=== PATIENT | female | born 1990 | race Caucasian/White ===

== ENCOUNTER → 2020-09-07 09:42 | Outpatient (CLI) | payer OTHER, SELFPAY ==
[2020-09-07 10:34] LABS: Add Manual Diff / Slide Review NO; Basophils Absolute Auto 0 /uL (0-100); Basophils Percent Auto 0.6 % (0-2); Eosinophils Absolute Auto 0 /uL (0-450); Eosinophils Percent Auto 0.5 % (2-4); Hematocrit 40.6 % (36-46); Hemoglobin 13.7 g/dL (12.0-16.0); Lymphocytes Absolute Auto 2000 /uL (1100-4500); Lymphocytes Percent Auto 24.4 % (25-40); Mean Corpuscular HGB Conc 33.7 % (30-36); Mean Corpuscular Hemoglobin 28.4 PG (26-34); Mean Corpuscular Volume 84.4 fL (80-100); Monocytes Absolute Auto 600 /uL (0-900); Monocytes Percent Auto 7.1 % (3-14); Neutrophils Absolute Auto 5500 /uL (1500-7000); Neutrophils Percent Auto 67.4 % (50-75); Platelet Count 330 X10^3/uL (150-400); Red Blood Cell Count 4.82 X10^6/uL (4.0-5.2); Red Cell Distribution Width 12.9 % (11.6-14.8); White Blood Cell Count 8.2 X10^3/uL (4.5-11.0)
[2020-09-07 10:52] LABS: Appearance Urine UA CLEAR; Bilirubin Urine UA NEGATIVE (NEGATIVE); Color Urine UA YELLOW; Glucose Urine UA NEGATIVE (Negative); Ketones Urine UA NEGATIVE (NEGATIVE); Leukocyte Esterase Urine UA NEGATIVE (NEGATIVE); Nitrite Urine UA NEGATIVE (Negative); Occult Blood Urine UA TRACE-LYSED (Negative); Protein Urine UA NEGATIVE (Negative); Specific Gravity Urine UA 1.025 (1.000-1.035); Urobilinogen Urine UA 0.2 E.U./dL (0.2)
[2020-09-07 10:56] LABS: pH Urine UA 6.5 (4.5-8.0)
[2020-09-07 13:29] LABS: Hepatitis B Surface Antigen NEGATIVE s/c (NEGATIVE)
[2020-09-07 13:46] LABS: HIV 1 & 2 Ab/Ag 4th Gen Combo NEGATIVE (NEGATIVE); Hep C Virus Ab w/Reflex Quant NEGATIVE s/c (NEGATIVE)
[2020-09-08 12:14] LABS: RPR Screen Non Reactive (Non Reactive); Varicella IgG Antibody 930 index (Immune >165)
== END ==
PROVIDERS: Referring Provider Specialist; Visit Provider Specialist
DX: Z34.01 Encounter for supervision of normal first pregnancy, first trimester (principal)
CPT/HCPCS: 36415; 80055; 81003; 86787; 86803; 86850; 86900; 86901; 87077; 87086; 87147; 87186; 87389

== ENCOUNTER → 2020-10-05 16:11 | Outpatient (CLI) | payer OTHER, SELFPAY | PROVIDERS: Visit Provider Specialist | DX: Z34.01 Encounter for supervision of normal first pregnancy, first trimester (principal) | CPT/HCPCS: 87077; 87086 ==

== ENCOUNTER → 2020-11-30 14:39 | Outpatient (CLI) | payer OTHER, SELFPAY ==
[2020-12-02 19:06] LABS: AFP, Serum 57.2 ng/mL (.); Calc Gestational Age Ultrasound (.); Estriol, Free 1.48 ng/mL (.); Inhibin A, Dimeric 190.95 pg/mL (.); Inhibin A, MoM 1.17 (.); Maternal Ethnicity Caucasian (.); Maternal Weight 146 lbs (.); Number of Fetuses No (.); OSBR Risk 1 IN 7366 (.); Results Report (.); Test Results *Screen Negative* (.); hCG, MoM 1.67 (.); hCG, Serum 44753 mIU/mL (.)
== END ==
PROVIDERS: PCP Internal Medicine; Referring Provider Specialist; Visit Provider Specialist
DX: Z34.02 Encounter for supervision of normal first pregnancy, second trimester (principal); Z3A.18 18 weeks gestation of pregnancy
CPT/HCPCS: 36415; 82105; 82677; 84702; 86336; 87491; 87591

== ENCOUNTER → 2020-11-30 14:39 | Outpatient (ROUT) | payer OTHER, SELFPAY ==
[2020-11-30 16:14] LABS: Urine N gonorrhoeae NOT DETECTED
[2020-11-30 16:28] LABS: Urine Chlamydia NOT DETECTED
== END ==
PROVIDERS: Visit Provider Specialist
DX: Z34.02 Encounter for supervision of normal first pregnancy, second trimester (principal); Z3A.18 18 weeks gestation of pregnancy
CPT/HCPCS: 87491; 87591

== ENCOUNTER → 2020-12-14 13:01 | Outpatient (CLI) | payer OTHER, SELFPAY ==
--- NOTE | 2020-12-14 13:02 | DI.US.S_ITS ---
PROCEDURE: US OB >= 14 WEEKS FETUS INDICATIONS: ANATOMY OUTSIDE/PRIOR DATING DATA: Last menstrual period (LMP): 07/08/2020 . LMP-based estimated date of delivery (MONIKA): 04/14/2021 . First dating scan (date and location): 09/07/2020 . Estimated date of delivery (MONIKA) from first dating scan: 04/29/2021 . TECHNIQUE: Real-time scanning was performed of the fetus, with image documentation and biometric measurements. Endovaginal scanning: Not performed COMPARISON: None. FINDINGS: General: A single living intrauterine gestation is present. Presentation: Breech. Placenta: Placental position is anterior , without previa. Amniotic fluid index: 18.4 cm, normal range is 5-24 cm. heart rate: 152 beats per minute. Maternal cervical canal: 3.0 cm long. Normal lower limit is 2.5 cm. biometrics: Estimated gestational age from initial scan: 20 weeks 4 days Composite gestational age from present scan: 20 weeks 5 days Estimated weight and percentile: 365 grams, 47th percentile Measurement variability for biometric dating: +/- 7 days from 14 weeks to 15 weeks 6 days gestation, +/- 10 days from 16 weeks to 21 weeks 6 days gestation, +/- 2 weeks from 22 weeks to 27 weeks 6 days gestation, +/- 3 weeks for 28 weeks gestation or later. weight reference: 4500 g or EFW >90/95% is considered macrosomia or large for gestational age. EFW <10% is small for gestational age. EFW 5% or less is considered intra-uterine growth restriction. Anatomic survey: Neuro: Ventricles are non-dilated at less than 10 mm. Cisterna magna is normal at 3-11 mm. Cerebellum is normal in size and morphology. Nuchal skin fold: Normal at less than 6 mm between 14-21 weeks gestational age. Face: Nose and lips, facial profile are normal. Spine: No evidence for spina bifida. Heart: 4-chambered heart is present, with normal ventricular outflow tracts. Diaphragm: Diaphragm is intact. Stomach: Left-sided stomach is present. Kidneys: No hydronephrosis. Normal is less than 5 mm in 2nd trimester, less than 7 mm in 3rd trimester. Cord: 3-vessel cord has orthotopic insertion. Bladder: Normal in size. Extremities: All 4 extremities identified. IMPRESSION: Single live intrauterine gestation with appropriate interval growth and normal anatomic survey. Dictated by: Modesto Carroll M.D. on 12/14/2020 at 16:30 Approved by: Modesto Carroll M.D. on 12/14/2020 at 16:31
== END ==
PROVIDERS: PCP Internal Medicine; Referring Provider Specialist; Visit Provider Specialist
DX: Z34.02 Encounter for supervision of normal first pregnancy, second trimester (principal); Z3A.20 20 weeks gestation of pregnancy
CPT/HCPCS: 76811

== ENCOUNTER → 2021-01-16 09:28 | Outpatient (CLI) | payer OTHER, SELFPAY ==
[2021-01-16 11:46] LABS: Hematocrit 34.5 % (36-46); Hemoglobin 11.6 g/dL (12.0-16.0)
[2021-01-16 12:32] LABS: GTT (PREG) 1 Hour PP 50gm Dose 165 mg/dL (76-139)
== END ==
PROVIDERS: PCP Internal Medicine; Referring Provider Specialist; Visit Provider Specialist
DX: Z34.82 Encounter for supervision of other normal pregnancy, second trimester (principal); Z3A.25 25 weeks gestation of pregnancy
CPT/HCPCS: 36415; 82950; 85014; 85018

== ENCOUNTER → 2021-04-11 13:12 | Outpatient (CLI) | payer OTHER, SELFPAY ==
[2021-04-12 10:42] LABS: Strep Grp B PCR NEG for Grp B Strep
== END ==
PROVIDERS: PCP Internal Medicine; Visit Provider Specialist
DX: Z34.03 Encounter for supervision of normal first pregnancy, third trimester (principal); Z3A.36 36 weeks gestation of pregnancy
CPT/HCPCS: 87653

== ENCOUNTER → 2021-08-16 15:44 | Outpatient (ROUT) | payer OTHER, SELFPAY ==
[2021-08-17 06:23] LABS: Candida species Negative (Negative); Gardnerella vaginalis Negative (Negative); Trichomoas vaginalis Negative (Negative)
== END ==
PROVIDERS: PCP Internal Medicine; Visit Provider Obstetrics & Gynecology
DX: N89.8 Other specified noninflammatory disorders of vagina (principal)
CPT/HCPCS: 87480; 87510; 87660

== ENCOUNTER 2022-05-18 23:16 | Emergency (ER) | payer OTHER, SELFPAY ==
[2022-05-18 23:25] VITALS: PULSE 140; RESP 16; TEMP 36.8; O2SAT 100
--- NOTE | 2022-05-18 23:34 | ED.FEMALEGU ---
HPI - Female Genitourinary General Chief complaint: Vaginal Bleeding Stated complaint: pain due to episiotomy last year Time Seen by Provider: 05/18/22 23:26 Source: patient Mode of arrival: Ambulatory History of Present Illness HPI Narrative: 31-year-old female nonsmoker with no chronic medical problems presents with her in the chief complaint of an accidental injury to her perineum just prior to arrival. She states that she was stepping up and over into her child's play pen when she slipped and landed on the top bar directly with her peritoneum. She is had significant pain in the aftermath. She denies other injury such as dizziness, weakness or lightheadedness. She has no chest pain or shortness of breath. She denies any vaginal bleeding or discharge. She states that she had a vaginal delivery about 1 year ago and ended up with a vaginal tear requiring a repair. About 3 months after the delivery she had what she describes as a dehiscence of that wound that was followed by our software support engineer, she has pain in the same area of these prior difficulties. Her pain is worse when she moves and improves with rest Related Data Home Medications Medication Instructions Recorded Confirmed prenat.vits,lyndsay,[id number] 1 tab PO DAILY 09/05/20 08/16/21 Previous Rx's Medication Instructions Recorded Double Electric breast Pump and #1 ea 03/14/21 Supplies cephalexin 500 mg capsule 500 mg PO BID #10 caps 05/19/22 hydrocodone 5 mg-acetaminophen 325 1 tab PO Q4-6H PRN pain #10 tabs 05/19/22 mg tablet ondansetron 4 mg disintegrating 4 mg PO TID-QID PRN nausea and 05/19/22 tablet vomiting #10 tabs Allergies Allergy/AdvReac Type Severity Reaction Status Date / Time No Known Drug Allergies Allergy Verified 09/07/20 08:20 Review of Systems Review of Systems Narrative: GENERAL: Denies chills, fatigue, malaise, fever, sweats. HEENT: Denies sinus pain, ear pain, sore throat, difficulty swallowing, dizziness. RESPIRATORY: Denies dyspnea, cough, wheezing, hemoptysis, sputum. CARDIOVASCULAR: Denies chest pain, palpitations, orthopnea, edema, GASTROINTESTINAL: Denies nausea, vomiting, abdominal pain, diarrhea, constipation, melena. : See HPI MUSCULOSKELETAL: denies weakness, joint pain, or bony pain SKIN: Denies rash, skin lesions, or other NEUROLOGIC: Denies weakness, headache, numbness, change in speech, confusion, seizures, incoordination. PSYCHIATRIC: No concerning psychosocial issues. 12 point review of systems is negative except for those stated above Patient History Medical History Gestational diabetes mellitus (GDM) Kidney stones (~2006) Surgical History H/O tooth extraction (~2012) Family History Mother No problems noted. Father History of heart artery stent History of open heart surgery Diabetes mellitus Pneumonia Grandmother Arthritis Grandfather No problems noted. Grandmother No problems noted. Grandfather Old age Family/Other Diabetes mellitus History of open heart surgery Brother No problems noted. Sister No problems noted. alcohol intake frequency: other Substance Use Type: does not use Exam Narrative Exam Narrative: GENERAL: [31] year old patient appears stated age. Well-developed patient, in mild distress. HEAD: Atraumatic. Normocephalic. EYES: Pupils equal round and reactive. Extraocular motions intact. No scleral icterus. No injection or drainage. ENT: Nose without bleeding, purulent drainage. Throat without erythema, tonsillar hypertrophy or exudate. Airway patent. NECK: Trachea midline. Non tender CARDIOVASCULAR: Tachycardic but regular rhythm without murmurs, gallops, or rubs. RESPIRATORY: Clear to auscultation. Breath sounds equal bilaterally. No wheezes, rales, or rhonchi. GASTROINTESTINAL: Abdomen soft, non-tender, nondistended. : External examination notes a 0.5 cm slightly gaping laceration centrally located in her episiotomy scar. There is no bleeding or leakage of fluid. She is tender superficially in this region and not any deep or or remote from this. There is no labial hematoma or laceration. No obvious evidence of vaginal bleeding externally, this exam performed with female nursing software quality test engineer and patient's permission EXTREMITIES: No edema or joint tenderness. BACK: Nontender without deformity or crepitance. No flank tenderness. NEURO: AOx3. SKIN: No rash or erythema of visible areas Initial Vital Signs Initial Vital Signs: Vital Signs Temperature 98.2 F 05/18/22 23:25 Pulse Rate 140 H 05/18/22 23:25 Respiratory Rate 16 05/18/22 23:25 Pulse Oximetry 100 05/18/22 23:25 Oxygen Delivery Method 05/18/22 23:25 Course Orders Ordered: ED Orders 05/19/22 00:15 Urine Culture Stat Urine Microscopic Stat Discontinued Medications Hydrocodone Bitart/Acetaminophen (Hydrocodone/Acet 5/325 Prepack) 1 bottle MISC SEEINSTR ONE Stop: 05/19/22 03:07 Last Admin: 05/19/22 03:22 Dose: 1 bottle Documented By: BERNADETTE Sodium Chloride (Normal Saline 0.9%) 1,000 mls @ 1,000 mls/hr IV BOLUS ONE Stop: 05/19/22 00:44 Ondansetron HCl (Ondansetron 4 Mg Odt Prepack) 1 bottle MISC SEEINSTR ONE Stop: 05/19/22 03:07 Last Admin: 05/19/22 03:22 Dose: 1 bottle Documented By: BERNADETTE Vital Signs Vital signs: Vital Signs - 8 hr 05/18/22 23:25 Temperature 98.2 F Pulse Rate 140 H Respiratory Rate 16 Pulse Oximetry 100 Oxygen Delivery Method Room Air MDM - Female Genitourinary Lab Data Labs: Lab Results 05/19/22 Range/Units 00:15 Urine RBC 0-1/hpf (0-5/HPF) Urine WBC 10-30/hpf H (0-5/HPF) Ur Squamous Epith Cells 1-5 /hpf (0-5/HPF) Urine Bacteria Moderate (10-30) H (None) Micro UA Comment * Point of Care Testing Test Results Negative Urine Dip Bedside Urine Glucose Negative Bedside Urine Bilirubin - Negative Bedside Urine Ketone - Negative Urine Specific [place] 1.010 Bedside Urine Occult Blood - Negative Bedside Urine pH 7.0 Bedside Urine Protein - Negative Bedside Urine Urobilinogen - Negative Bedside Urine Nitrite - Negative Bedside Urine Leukocytes ++ 125 Esterase Discharge Plan Departure Patient Disposition: Home Clinical Impression: Perineal abrasion, UTI (urinary tract infection) Instructions: DI for Vulvo-vaginal Tears, DI for Urinary Tract Infection (UTI) Activity Restrictions/Additional Instructions: *You have been diagnosed with [small perineal laceration within your episiotomy scar. As we discussed there is no indication for suture closure at this time. Additionally, there is note of an infection in your urine and antibiotics have been sent along with your pain meds to [facility]] *What to do: *Please continue to take your regular medications as directed. [x ] New medication prescriptions sent to your pharmacy: [ [facility] in [place] [ ] New medication written as a paper prescription [ ] No new medications given *Please follow up with your primary make up operator helper provider in 2-3 days, call for an appointment. Let them know you were seen in the Emergency Department and that we ask that you be seen in follow up. We will electronically transmit a record of today's note *Return to Emergency Department if you should have any new, worsening or concerning symptoms, such as [fever greater than 101 F, shaking chills, worsening pain, persistent vomiting or other bothersome symptoms] You have been prescribed a short course of narcotic medications. These are potentially dangerous and addictive medications that should be used carefully. While on these medications you cannot drive or operate heavy machinery. Additionally, you cannot sign legal documents or perform any duties such as this. Many people get constipated on narcotic medications so it would be advisable to discuss stool softeners with the pharmacist when you picking machine operator your prescription. Please understand that we cannot provide further refills of narcotics or controlled substances through the ED and your pain management will need to be through your Primary Care Provider Prescriptions: New hydrocodone-acetaminophen 5-325 mg tablet 1 tab PO Q4-6H PRN (Reason: pain) Qty: 10 0RF ondansetron 4 mg tablet,disintegrating 4 mg PO TID-QID PRN (Reason: nausea and vomiting) Qty: 10 0RF cephalexin 500 mg capsule 500 mg PO BID Qty: 10 0RF No Action (DME) Double Electric breast Pump and Supplies See Rx Instructions .ROUTE .MEDSUPPLY Qty: 1 0RF Rx Instructions: Use electric breast pump and supplies as directed for 99 months. MONIKA 04/29/21. prenat.vits,lyndsay,[id number] Tablet 1 tab PO DAILY Referrals: Asuncion Youngblood MD [Physician] - Yesi Levy MD [Primary Care Provider] - Visit Report Forms: Patient Portal/API
--- NOTE | 2022-05-19 | PC.NURSE ---
States that she was stepping over the playpen last night and she fell straight down on the bar/side - now with pain to the perineal area between the vaginal and rectal areas - states that there was some bleeding - no bleeding at this time - extremely painful - especially with movement
--- NOTE | 2022-05-19 00:05 | PC.NURSE ---
Ambulatory to the bathroom with steady gait - clean catch UA collected - cloudy yellow urine obtained
--- NOTE | 2022-05-19 00:15 | PC.NURSE ---
Requesting to hold the IV and fluids - notified
--- NOTE | 2022-05-19 00:45 | PC.NURSE ---
Resting quietly with family at the bedside - no needs voiced at this time - awaiting evaluation
--- NOTE | 2022-05-19 01:55 | PC.NURSE ---
MD at bedside with this RN for examination of the pt's perineal area - small tear to the perineal area - bleeding controlled - appears to be superficial - no intervention needed at this time - pt states that it is extremely painful
[2022-05-19 02:40] LABS: Bacteria Urine Moderate (10-30); RBC Urine 0-1/HPF (0-5/HPF); Squamous Epithelial Cell Urine 1-5 /HPF (0-5/HPF); WBC Urine 10-30/HPF (0-5/HPF)
[2022-05-19] MEDS: ONDANSETRON 4 MG ODT PREPACK 1 BOTTLE MISC (03:22)
[2022-05-19] MEDS: HYDROCODONE/ACET 5/325 PREPACK 1 BOTTLE MISC (03:22)
== END 2022-05-19 03:35 | disposition home or self-care (01) ==
PROVIDERS: Emergency Provider Emergency Medicine; PCP Internal Medicine
DX: S30.814A Abrasion of vagina and vulva, initial encounter (principal); N39.0 Urinary tract infection, site not specified; W22.8XXA Striking against or struck by other objects, initial encounter
CPT/HCPCS: 81003; 81015; 81025; 87086; 99282

== ENCOUNTER → 2022-08-08 17:06 | Outpatient (CLI) | payer OTHER, SELFPAY ==
[2022-08-08 17:26] LABS: Specimen Label NATERA
[2022-08-08 17:51] LABS: Add Manual Diff / Slide Review NO; Basophils Absolute Auto 0 /uL (0-100); Basophils Percent Auto 0.4 % (0-2); Eosinophils Absolute Auto 100 /uL (0-450); Eosinophils Percent Auto 1.6 % (2-4); Hematocrit 36.9 % (36-46); Hemoglobin 12.6 g/dL (12.0-16.0); Lymphocytes Absolute Auto 2500 /uL (1100-4500); Lymphocytes Percent Auto 30.8 % (25-40); Mean Corpuscular HGB Conc 34.1 % (30-36); Mean Corpuscular Hemoglobin 28.2 PG (26-34); Mean Corpuscular Volume 82.8 fL (80-100); Monocytes Absolute Auto 700 /uL (0-900); Monocytes Percent Auto 8.4 % (3-14); Neutrophils Absolute Auto 4800 /uL (1500-7000); Neutrophils Percent Auto 58.8 % (50-75); Platelet Count 322 X10^3/uL (150-400); Red Blood Cell Count 4.46 X10^6/uL (4.0-5.2); Red Cell Distribution Width 12.9 % (11.6-14.8); White Blood Cell Count 8.1 X10^3/uL (4.5-11.0)
[2022-08-08 18:16] LABS: Hemoglobin A1C% w Est Avg Glu 5.2 % (4.0-6.0)
[2022-08-08 18:23] LABS: Appearance Urine UA CLEAR; Bilirubin Urine UA NEGATIVE (NEGATIVE); Color Urine UA YELLOW; Glucose Urine UA NEGATIVE (Negative); Ketones Urine UA NEGATIVE (NEGATIVE); Leukocyte Esterase Urine UA NEGATIVE (NEGATIVE); Nitrite Urine UA NEGATIVE (Negative); Occult Blood Urine UA NEGATIVE (Negative); Protein Urine UA NEGATIVE (Negative); Urobilinogen Urine UA 0.2 E.U./dL (0.2)
[2022-08-08 19:16] LABS: HIV 1 & 2 Ab/Ag 4th Gen Combo NEGATIVE (NEGATIVE); Hep C Virus Ab w/Reflex Quant NEGATIVE s/c (NEGATIVE); Hepatitis B Surface Antigen NEGATIVE s/c (NEGATIVE)
[2022-08-09 07:59] LABS: Varicella IgG Antibody 1511 index (Immune >165)
[2022-08-10 07:51] LABS: RPR Screen Non Reactive (Non Reactive)
== END ==
PROVIDERS: PCP Internal Medicine; Referring Provider Obstetrics & Gynecology; Visit Provider Obstetrics & Gynecology
DX: O09.299 Supervision of pregnancy with other poor reproductive or obstetric history, unspecified trimester (principal); Z86.32 Personal history of gestational diabetes
CPT/HCPCS: 36415; 80055; 81003; 83036; 86787; 86803; 86850; 86900; 86901; 87086; 87389

== ENCOUNTER → 2022-10-02 14:09 | Outpatient (CLI) | payer OTHER, SELFPAY ==
[2022-10-05 18:18] LABS: AFP Value 51.8 ng/mL (.); Gest Age on Col Date 17.9 weeks (.); Insulin Dep Diabetes No (.); OSBR Risk 1IN 6301 (.); Results Report (.); Test Results *Screen Negative* (.)
== END ==
PROVIDERS: PCP Internal Medicine; Referring Provider Obstetrics & Gynecology; Visit Provider Obstetrics & Gynecology
DX: Z34.82 Encounter for supervision of other normal pregnancy, second trimester (principal); Z3A.17 17 weeks gestation of pregnancy
CPT/HCPCS: 36415; 82105

== ENCOUNTER → 2022-10-24 14:03 | Outpatient (CLI) | payer OTHER, SELFPAY ==
--- NOTE | 2022-10-24 14:04 | DI.US.S_ITS ---
PROCEDURE: US OB >= 14 WEEKS FETUS INDICATIONS: ANATOMY SCAN OUTSIDE/PRIOR DATING DATA: Last menstrual period (LMP): 05/30/2022. LMP-based estimated date of delivery (MONIKA): 03/06/2023. First dating scan (date and location): Today's exam. Estimated date of delivery (MONIKA) from first dating scan: 03/04/2023. The calculations are made using the clinical MONIKA of 03/06/2023. TECHNIQUE: Real-time scanning was performed of the fetus, with image documentation and biometric measurements. Endovaginal scanning: Not performed COMPARISON: [facility], , OB >= 14 WEEKS FETUS, 02/01/2021, 13:58. FINDINGS: General: A single living intrauterine gestation is present. Presentation: Breech. Placenta: Placental position is anterior , without previa. Amniotic fluid index: 13.7 cm, normal range is 5-24 cm. Single deepest vertical pocket is 4.5 cm. heart rate: 155 beats per minute. Maternal cervical canal: 4.0 cm long. Normal lower limit is 2.5 cm. biometrics: Biparietal diameter: 5.2 cm, 21 weeks 4 days Head circumference: 18.9 cm, 21 weeks 1 day Abdominal circumference: 16.5 cm, 21 weeks 4 days Femur length: 3.4 cm, 20 weeks 5 days Clinically estimated gestational age: 21 weeks 0 days Composite gestational age from present scan: 21 weeks 2 days Estimated weight and percentile: 406 g, 56 percentile Anatomic survey: Neuro: Ventricles are non-dilated at less than 10 mm. Cisterna magna is normal at 3-11 mm. Cerebellum is normal in size and morphology. Nuchal skin fold: Normal at less than 6 mm between 14-21 weeks gestational age. Face: Nose and lips, facial profile are normal. Spine: No evidence for spina bifida. Heart: 4-chambered heart is present, with normal ventricular outflow tracts. Diaphragm: Diaphragm is intact. Stomach: Left-sided stomach is present. Kidneys: No hydronephrosis. Normal is less than 5 mm in 2nd trimester, less than 7 mm in 3rd trimester. Cord: 3-vessel cord has orthotopic insertion. Bladder: Normal in size. Extremities: All 4 extremities identified. IMPRESSION: Single living intrauterine at 21 weeks 0 days, MONIKA of 03/06/2023. Normal anatomy survey. Estimated weight of 406 g, 56 percentile. We strive to produce accurate, complete, and clear reports of imaging services. To assist us in improving patient care, this report was composed using standard report templates and voice recognition software. Therefore, it may contain abnormal punctuation, insertions and/or omissions. Occasional wrong-word or sound-alike substitutions may occur. Though we review the report and make efforts to correct it, we do recommend that the report be read carefully in proper context to recognize any text inaccuracies. Dictated by: Néstor Henley M.D. on 10/24/2022 at 16:42 Approved by: Néstor Henley M.D. on 10/24/2022 at 16:44
== END ==
PROVIDERS: PCP Internal Medicine; Referring Provider Obstetrics & Gynecology; Visit Provider Obstetrics & Gynecology
DX: Z34.82 Encounter for supervision of other normal pregnancy, second trimester (principal); Z3A.20 20 weeks gestation of pregnancy
CPT/HCPCS: 76811

== ENCOUNTER 2022-12-21 16:42 | Outpatient (CLI) | payer OTHER, SELFPAY ==
--- NOTE | 2022-12-21 17:30 | P.TNLD_ITS ---
Visit Information Visit Information Date of evaluation: 12/21/22 Primary OB Provider: Lynsey Cantu On-call OB Provider: Asuncion Youngblood Reason for Evaluation: Yes non-stress test Comments/Additional reasons for admission: Left abdomnal pain and vaginal spotting Vital Signs Vital Signs: Blood pressure 118/70, pulse 114, temperature 97.4? [facility] Medical History (Updated 12/21/22 @ 17:34 by Asuncion Youngblood MD) Episiotomy pain Gestational diabetes mellitus (GDM) Kidney stones (~2006) Surgical History H/O tooth extraction (~2012) Family History Mother No problems noted. Father History of heart artery stent History of open heart surgery Diabetes mellitus Pneumonia Grandmother Arthritis Grandfather No problems noted. Grandmother No problems noted. Grandfather Old age Family/Other Diabetes mellitus History of open heart surgery Brother No problems noted. Sister No problems noted. Social History marital status: number of children: 1 household members: spouse and children lives independently: Yes caregiver/support person: Yes housing: apartment pets and animals: No education level: college (working on her Master's in [employer] ) occupational status: unemployed and previously employed current occupational exposures/hazards: No special kayla needs: No travel history: over 6 months ago seatbelt use: always water heater temp set < 120 deg: Yes working smoke detector in home: Yes fire extinguisher in home: Yes carbon monox detector in home: Yes firearms in home: Yes do you feel safe at home: Yes Smoking Status: Never smoker second hand exposure: No alcohol intake: never substance use type: does not use during the past year weight has: other (back to pre-baby weight) well-balanced diet: daily or most days daily servings fruits/ve or more times/day caffeine: No Type(s) of exercise: walking frequency: daily Review of Systems Review of Systems Narrative: Patient does complain of some cold symptoms. She has left-sided abdominal pain is been going on for few days. She did have intercourse a few days ago and had some light spotting this morning but currently no bleeding. Exam Narrative Exam Narrative: Abdomen is soft, uterus is soft, the area of tenderness is likely in the round ligament area, no rebound. Speculum exam there is no blood in the vagina. Cervix appears long and closed. Digital exam cervix is long and closed fetus is out of the pelvis. Evaluation Evaluation Baseline heart rate: 140 Variability: Moderate (11-25) monitor accelerations: Present Monitor Decelerations: Absent Contraction Frequency (minutes): 0 Category of Tracing: Reactive Status: Category l Cervical dilation (cm): 0 Cervical effacement (%): 0 station: -3 Diagnosis, Plan/Disposition Final Diagnosis (1) 29 weeks gestation of : Status: Acute (2) Vaginal bleeding in : Status: Acute Plan/Disposition Plan: On speculum exam the patient had no obvious blood. Cervix was long and closed. There are no contractions on monitor. Patient reassured that she is feeling round ligament pain and she did have intercourse recently that is likely the cause of the spotting although no blood seen in the vagina this time. OB Disposition: home
== END 2022-12-21 17:32 | disposition home or self-care (01) ==
LOC: OB 12-26 08:59
PROVIDERS: PCP Internal Medicine; Referring Provider Specialist; Visit Provider Specialist
DX: O26.853 Spotting complicating pregnancy, third trimester (principal); O26.893 Other specified pregnancy related conditions, third trimester; R10.9 Unspecified abdominal pain; Z3A.29 29 weeks gestation of pregnancy
CPT/HCPCS: 59025; G0378; G0379

== ENCOUNTER → 2023-02-07 14:49 | Outpatient (CLI) | payer OTHER, SELFPAY | PROVIDERS: PCP Internal Medicine; Visit Provider Obstetrics & Gynecology | DX: R31.9 Hematuria, unspecified (principal) | CPT/HCPCS: 87086 ==

== ENCOUNTER → 2023-02-14 13:58 | Outpatient (CLI) | payer OTHER, SELFPAY ==
[2023-02-15 14:58] LABS: Strep Grp B PCR NEG for Grp B Strep
== END ==
PROVIDERS: PCP Internal Medicine; Visit Provider Obstetrics & Gynecology
DX: Z34.83 Encounter for supervision of other normal pregnancy, third trimester (principal); Z3A.37 37 weeks gestation of pregnancy
CPT/HCPCS: 87653

== ENCOUNTER 2023-03-07 16:50 | Observation (INO) | payer OTHER, SELFPAY | END 2023-03-07 17:50 | disposition home or self-care (01) | PROVIDERS: Admitting Provider Obstetrics & Gynecology; PCP Internal Medicine; Referring Provider Obstetrics & Gynecology; Visit Provider Obstetrics & Gynecology | DX: O48.0 Post-term pregnancy (principal); Z3A.40 40 weeks gestation of pregnancy | CPT/HCPCS: 59025; G0378; G0379 ==

== ENCOUNTER 2023-03-08 13:34 | Inpatient (IN) | payer OTHER, SELFPAY ==
--- NOTE | 2023-03-08 14:28 | P.HPOB_ITS ---
OB HPI Date/Time Date of admission: 03/08/23 Date Patient Seen: 03/08/23 Time Patient Seen: 14:50 History of Present Condition Chief complaint: IUP, 40+2 wks EGA, early labor, GBS NEG : 2 Para: 1 Estimated Date of Delivery: 03/06/23 Estimated Gestational Age (weeks): 40+2 Narrative: Deborah Peralta is a 32 year old admitted now at 40+ 2 weeks gestational age in early spontaneous labor. Patient had gestational diabetes with the 1st and declined 1 hour GDM screen this in favor of monitoring her blood sugars and adapting her diet to ADA diet with fastings in the 80-90 range and 2 hour postprandial blood sugars typically in the range of 122 140 mg%. Patient's most recent ultrasound EFW is 8.5 lb performed about a week ago and the patient has been having discussions with both Dr. Youngblood and Dr. Rojas about possible need for delivery due to the fact that her prior delivery of a 6-1/2 lb was complicated by vacuum extraction and third- degree perineal laceration. Patient however has decided to proceed with a trial of labor and presents now with regular contractions and early cervical changes. Patient's dating is solid and milestones have been appropriate throughout. GBS is negative. Indications Indication for induction OB: gestational diabetes History of Present care: good care Dating criteria: LMP confirmed by 1st trimester US Ultrasounds: normal 1st trimester US and normal mid trimester US Obstetrical complications: gestational diabetes and other (LGA) Preadmission Labs Blood type: A (+) positive -: Antibody screen: negative, GBS status: negative, HBsAG: negative, HIV: negative and RPR/VDLR: negative -: Chlamydia screen: not detected and Gonorrhea screen: not detected -: Rubella: immune and Varicella: immune HCT: 34.6 HCAB: negative PAP: Normal Quad screen: Normal (AFP testing negative) Cell-free DNA: Low risk male infant Prior (ies) History: Vacuum extraction, 6.5 lb. w/ 3rd degree perineal laceration Evaluation Evaluation Baseline heart rate: 150 Variability: Moderate (11-25) monitor accelerations: Present Monitor Decelerations: Absent Contraction Frequency (minutes): 4 Uterine Contraction Intensity: Moderate Category of Tracing: Reactive Status: Category l Dilation (cm): 4 Effacement (%): 90 Dilation: 3-4 cm Effacement: >/=80% station: -2 Position of cervix: mid Consistency: soft Allred score: 9 PFSH Medical History (Updated 03/07/23 @ 16:51 by Claire Rojas DO) Episiotomy pain Gestational diabetes mellitus (GDM) Kidney stones (~2006) Surgical History H/O tooth extraction (~2012) Family History Mother No problems noted. Father History of heart artery stent History of open heart surgery Diabetes mellitus Pneumonia Grandmother Arthritis Grandfather No problems noted. Grandmother No problems noted. Grandfather Old age Family/Other Diabetes mellitus History of open heart surgery Brother No problems noted. Sister No problems noted. Social History marital status: number of children: 1 household members: spouse and children lives independently: Yes caregiver/support person: Yes housing: apartment pets and animals: No education level: college occupational status: unemployed and previously employed current occupational exposures/hazards: No special kayla needs: No travel history: over 6 months ago seatbelt use: always water heater temp set < 120 deg: Yes working smoke detector in home: Yes fire extinguisher in home: Yes carbon monox detector in home: Yes firearms in home: Yes do you feel safe at home: Yes Smoking Status: Never smoker second hand exposure: No alcohol intake: never substance use type: does not use during the past year weight has: other well-balanced diet: daily or most days daily servings fruits/ve or more times/day caffeine: No Type(s) of exercise: walking frequency: daily Meds Home Medications and Allergies Home Medications Medication Instructions Recorded Confirmed Type prenat.vits,lyndsay,[id number] 1 tab PO DAILY 09/05/20 03/08/23 History metoclopramide HCl 10 mg tablet 10 mg PO Q6H PRN nausea and 08/07/22 03/08/23 Rx (Reglan) vomiting #20 tabs metoclopramide HCl 10 mg tablet 10 mg PO Q6H PRN nausea and 08/07/22 03/08/23 Rx (Reglan) vomiting #30 tabs promethazine 12.5 mg rectal 12.5 mg OR Q4-6H PRN nausea and 09/04/22 03/08/23 Rx suppository vomiting #12 ea blood-glucose meter (Blood Glucose #1 ea 11/27/22 03/08/23 Rx Monitoring kit) lancets (Comfort Lancets) #100 ea 12/16/22 03/08/23 Rx blood sugar diagnostic (Blood #100 ea 12/23/22 03/08/23 Rx Glucose Test strips) ondansetron 4 mg disintegrating 4 mg PO Q6-8H PRN for 01/16/23 03/08/23 Rx tablet nausea/vomiting #20 tabs Allergies Allergy/AdvReac Type Severity Reaction Status Date / Time No Known Drug Allergies Allergy Verified 03/07/23 16:20 Review of Systems Review of Systems Narrative: Problem-specific ROS positives included in HPI OB Exam Vital signs Blood Pressure: 119/73 Pulse Rate: 97 Temperature: 96.8 F HENMT Head: normal to inspection, normocephalic and atraumatic Eyes General: appearance normal, both eyes and all related structures Resp Effort & Inspection: normal respiratory effort and able to speak in complete sentences Auscultation: clear to auscultation bilaterally Cardio Rate: regular rate Rhythm: regular rhythm Heart Sounds: S1 normal, S2 normal and no murmurs Extremities Lower extremity: Yes normal to inspection GI Inspection: normal to inspection Palpation: Yes soft and Yes no hepatosplenomegaly Uterus Location (Fundal Height): 39 Presentation: vertex Estimated Weight (lbs): 9 Objective Labs 03/08/23 14:50 Assessment and Plan Assessment and Plan Assessment and Plan narrative: ASSESSMENT 1. Intrauterine 2. LGA 3. Gestational DM, A1 4. GBS Negative PLAN 1. Admit for labor and delivery 2. Close observation for CPD 3. See admission orders
[2023-03-08 16:19] LABS: Add Manual Diff / Slide Review NO; Basophils Absolute Auto 0 /uL (0-100); Basophils Percent Auto 0.2 % (0-2); Eosinophils Absolute Auto 100 /uL (0-450); Hematocrit 34.6 % (36-46); Hemoglobin 11.8 g/dL (12.0-16.0); Lymphocytes Absolute Auto 2600 /uL (1100-4500); Lymphocytes Percent Auto 24.8 % (25-40); Mean Corpuscular Hemoglobin 28.5 PG (26-34); Mean Corpuscular Volume 83.8 fL (80-100); Monocytes Absolute Auto 800 /uL (0-900); Monocytes Percent Auto 7.3 % (3-14); Neutrophils Absolute Auto 7000 /uL (1500-7000); Neutrophils Percent Auto 66.7 % (50-75); Platelet Count 253 X10^3/uL (150-400); Red Blood Cell Count 4.12 X10^6/uL (4.0-5.2); White Blood Cell Count 10.5 X10^3/uL (4.5-11.0)
[2023-03-08 18:44] VITALS: BP 119/73; PULSE 97; TEMP 36
[2023-03-08] MEDS: OXYTOCIN PREMIX 30 UNIT/500 ML PLAST..BAG IV (21:53)
--- NOTE | 2023-03-09 | PATH_ITS ---
[facility] Accession Number: [id number] No. of containers..01 Tissue . 01 Material submitted: . fallopian tube - BILATERAL FALLOPIAN TUBES . 01 Diagnosis: Bilateral Fallopian Tubes, Bilateral Salpingectomy: Benign fallopian tubes without pathologic abnormalities. MRV 03/12/2023 1755 Local . 01 Electronically signed: . Susana Bose MD, Pathologist NPI- [id number] . 01 Gross description: . The specimen is received in formalin labeled with the patient's name, , and bilateral fallopian tubes consist of two unoriented fimbriated fallopian tubes measuring 8.2 x 0.7 cm and 8.9 x 0.8 cm, respectively. Both tubes have violaceous, smooth serosa with several small cystic structures measuring up to 0.2 cm in greatest dimension filled with cloudy serous fluid. Sectioning reveals unremarkable stellate lumens. [employer] sections to include one-half of bisected fimbriae and cross sections are submitted as follows: A1: Longer fallopian tube. A2: [place] fallopian tube. ([id number]) /MRV 03/11/2023 1415 Local . 01 Pathologist provided ICD-10: Z30.2 . 01 CPT . 095178 Specimen Comment: A courtesy copy of this report has been sent to [phone] Performed at: 01 [facility] [address] [place] [address], [place], [place] [id number] MD Roger Babcock MD Phone: [phone]
--- NOTE | 2023-03-09 05:01 | P.PNOB_ITS ---
Date/Time Date Patient Seen: 03/09/23 Time Patient Seen: 04:55 Pain Control Pain control: tolerating well and epidural Pelvic Exam Dilation (cm): 8 Effacement (%): 90 station: -2 Amniotic membrane status: Intact Contractions Contractions on admission: irregular Monitor mode: External Pitocin rate (mU/min): 0 Contraction frequency (min): 6 Contraction duration (min): 1 Contraction pattern: Irregular Contraction phase: Resting Contraction intensity: Moderate Status status: Category l Heart Rate Baseline: 155 Monitor Accelerations: Present Monitor Decelerations: Prolonged (Following MARE placement w/ marked decrease of MAP; resolved w/ fluids/ephedrine) Monitor Variability: Minimal (Variability recovering after in-utero resuscitation) Assessment and Plan Assessment: active labor Comments: CTSP stat for prolonged bradycardia following MARE placement. Successful in- utero resuscitation and now FHR baseline has returned to pre-MARE HR and contractions well tolerated. Variability is also returning to pre-MARE levels. Cervix has dilated to 8 cm but vertex remains high.
--- NOTE | 2023-03-09 06:08 | PC.NURSE ---
0432 - 0446 After pt was placed into low mac with tilt post epidural, she noted to be nauseous and proceeded to vomit. Her BP was low at the time; Dr. Gonzales notified and came to bedside. RN then audibly heard FHT in the 70s; back up called to help rotate MOB and assist with interventions. Marielle Downey CNM on unit and called in to assess MOB. Dr. Alas also called and notified of FHT and MOB status at same time. On route to hospital. Pt rotated in several directions, ephedrine and ondansetron administered; oxytocin discontinued. Fluid bolus initiated, O2 placed on MOB. SVE 8/100/-3; possibly more dilated, however, RN unable to assess edge of cervix due to maternal pain and clenching of legs. MOB stated that she was feeling a lot of pain where her prior episiotomy and stitches were. Placed left lateral with head of bed at approx. 15 degrees. Pt complaining of intense, sudden headache. Epidural working adequately and pt unaware of ctx. 0500 After BP stabilized, pt responding only to verbal yes/no questions. Unable to answer open ended questions. Appears to be sleeping with eyes shut. Pt able to reposition head and arms on own. Answered questions FOB had about pt and FHT status. Pt noted to be shaking; pressure applied to arms stopped shaking. RR elevated. 0520 Pt stated that her breasts and upper chest felt numb. Raised head of bed and notified Dr. Gonzales who was still on floor. Initially denied SOB, however, 4 minutes later pt hyperventilating. Epidural rate decreased, HOB raised, O2 administered. Pt reporting that she is able to breathe better. RN educated that it could take a little while before normal sensation in chest returned. Pt able to move arms without difficulty. 0530 Pt and FOB sleeping. 0600 Ctx spacing, FHT reassuring. Pt sleeping comfortably; RR 26.
--- NOTE | 2023-03-09 06:27 | PM.OBPNLAB ---
Date/Time Date Patient Seen: 03/09/23 Time Patient Seen: 06:27 Pain Control Pain control: tolerating well and epidural Pelvic Exam Dilation (cm): 8 Effacement (%): 100 station: -3 Amniotic membrane status: Intact Contractions Contractions on admission: irregular Monitor mode: External Pitocin rate (mU/min): 0 Contraction frequency (min): 3 Contraction duration (min): 1 Contraction pattern: Irregular Contraction phase: Resting Contraction intensity: Moderate Status status: Category l Heart Rate Baseline: 150 Monitor Accelerations: Present Monitor Decelerations: Absent Monitor Variability: Moderate Assessment and Plan Assessment: active labor Comments: Patient hasn't changed cervical exam over the last two hours. Will recheck in two more hours and if no further progress, recommend primary section for secondary arrest due to CPD.
--- NOTE | 2023-03-09 08:26 | PM.OBPNLAB ---
Date/Time Date Patient Seen: 03/09/23 Time Patient Seen: 08:26 Pain Control Pain control: tolerating well and epidural Pelvic Exam Dilation (cm): 8 Effacement (%): 100 station: -3 Amniotic membrane status: Intact Comments: Vertex is too high for safe AROM Contractions Contractions on admission: irregular Monitor mode: External Pitocin rate (mU/min): 2 Contraction frequency (min): 3 Contraction duration (min): 1 Contraction pattern: Irregular Contraction phase: Resting Contraction intensity: Moderate Status status: Category l Heart Rate Baseline: 150 Monitor Accelerations: Present Monitor Decelerations: Absent Monitor Variability: Moderate Assessment and Plan Assessment: active labor and other (Secondary arrest x 4 hours) Plan: Comments: Options for management of her secondary arrest discussed at length with patient and her . After consideration of all options, the patient wishes to proceed with primary delivery for failure to progress in labor due to cephalopelvic disproportion. In addition she desires elective sterilization. Patient counseled regarding alternatives, risks, benefits, and potential complications associated with primary section and bilateral salpingectomy. She was also counseled specifically that bilateral salpingectomy is a procedure which will result in her permanently and irreversibly being unable bear children without benefit of assisted reproductive technology. With full understanding of the above, a written consent is executed, signed, and witnessed this date.
--- NOTE | 2023-03-09 08:45 | PM.ANES.PR ---
Operative Date/Time/Diagnoses Date of procedure: 03/09/23 Time of procedure: 04:06 Pre-op diagnosis: Labor pain Post-op diagnosis: same Note Patient is a requesting labor epidural for labor pain
--- NOTE | 2023-03-09 08:47 | PM.AN.REGBLK ---
[facility] Pre-procedure Procedure: Continuous Lumbar Epidural for L&D Attending OB provider: Zachariah Alas PMH/ROS narrative: patient is a requesting labor epidural for labor pain Hx: No personal or family history of anesthesia problems. Exam narrative: Mallampati: 2, good neck ROM, T.M. > 3cm ASA Class: II Labs: Hct 34.6 % (36-46) L 03/08/23 14:50 Plt Count 253 X10^3/uL (150-400) 03/08/23 14:50 Medications: Current Medications Generic Name Dose Route Start Last Admin Trade Name Freq PRN Reason Stop Dose Admin Calcium Carbonate 1,000 mg 03/08/23 14:43 Calcium Carbonate 500 Mg Tab PO Q4HR PRN Dyspepsia Carboprost Tromethamine 250 mcg 03/08/23 14:29 Carboprost 250 Mcg/Ml Ampul IM Q90M PRN Bleeding Oxytocin/Lactated Ringer's 30 unit in 500 mls @ 200 mls/hr 03/08/23 14:29 Oxytocin Premix IV CONT PRN Bleeding Protocol Tranexamic Acid 1,000 mg/ 100 mls @ 200 mls/hr 03/08/23 14:29 Sodium Chloride IV NOW PRN Bleeding Lactated Ringer's 1,000 mls @ 100 mls/hr 03/08/23 14:30 Lactated Ringers IV CONT FRANTZ Oxytocin/Lactated Ringer's 30 unit in 500 mls @ 1 mls/hr 03/08/23 21:05 03/08/23 21:53 Oxytocin Premix IV 1 milliunit/min TITRATE FRANTZ 1 mls/hr Administration Protocol 1 MILLIUNIT/MIN Oxytocin/Lactated Ringer's 30 unit in 500 mls @ 1 mls/hr 03/08/23 21:51 Oxytocin Premix IV 03/29/23 17:50 NOW ONE Protocol 1 MILLIUNIT/MIN Lidocaine HCl 20 ml 03/08/23 14:29 Lidocaine 1% 20 Ml INJ INTRA-OP PRN Post Delivery Methylergonovine Maleate 0.2 mg 03/08/23 14:29 Methylergonovine 0.2 Mg Tablet PO Q6HR PRN Heavy Bleeding Methylergonovine Maleate 0.2 mg 03/08/23 14:29 Methylergonovine 0.2 Mg/Ml Vial IM NOW PRN Bleeding Misoprostol 800 mcg 03/08/23 14:29 Misoprostol 200 Mcg Tablet NC NOW PRN Bleeding Misoprostol 400 mcg 03/08/23 14:29 Misoprostol 200 Mcg Tablet SL NOW PRN Bleeding Naloxone HCl 0.2 mg 03/08/23 14:29 Naloxone 0.4 Mg/Ml Vial IV Q2MIN PRN Opiate Reversal Ondansetron HCl 4 mg 03/08/23 14:43 Ondansetron 4 Mg/2 Ml Inj IV Q4HR PRN Nausea And Vomiting Oxytocin 10 unit 03/08/23 14:29 Oxytocin 10 Unit/Ml Vial IM NOW PRN Bleeding Allergies: Allergies Allergy/AdvReac Type Severity Reaction Status Date / Time No Known Drug Allergies Allergy Verified 03/07/23 16:20 Procedure Insertion date: 03/09/23 Insertion time: 04:06 Prep/Local: 1% lidocaine (prep with Chloroprep) Interspace: L4-5 Patient position: sitting Needle: 18 gauge Hustead Loss of resistance with: saline ARMAAN at (cm): 5 Catheter placed at SKIN (cm): 9 Catheter in SPACE (cm): 4 Sensory level: T10 Insertion: No CSF, No Blood, No Paresthesia with insertion, No Paresthesia with injection and No Test dose reaction Initial Medications TEST DOSE time: 04:24 TEST DOSE: 1.5% lidocaine with epinephrine 1:200k (mL): 5 Infusion INFUSION: 0.125% bupivacaine and with fentanyl 2 mcg/mL Initial rate (mL/hr): 10 Subsequent interventions: 03/09/2023: epidural to Post-procedure Anesthesia time START: 04:06 Anesthesia time END: 09:44 Post-procedure Anesthesia Assessment: Yes CV function: HR/BP stable, Yes Resp function: RR/sat/airway adequate, Yes Post-op hydration adequate, Yes Pain control adequate, Yes Nausea & vomiting absent, Yes Temperature > 36 C and Yes Mental status appropriate
--- NOTE | 2023-03-09 09:01 | PM.PREOP ---
Pre-operative Note COVID-19 COVID-19 status: Not tested Interval Note History & Physical reviewed/Exam performed by Physician: Yes Changes to H&P: No
[2023-03-09] MEDS: CITRIC ACID/SODIUM CITRATE 15 ML SOLUTION 30 ML PO (09:30)
[2023-03-09] MEDS: LACTATED RINGERS 1,000 ML 100 ML IV ×2 (09:31→11:24)
[2023-03-09] MEDS: CEFAZOLIN 2 GM/100 ML PREMIX 100 ML IV (09:32)
[2023-03-09] MEDS: AZITHROMYCIN 500 MG in DEXTROSE 5% IN WATER 250 ML 250 MG IV (09:33)
--- NOTE | 2023-03-09 10:09 | SUR.OPER ---
Supine on Padded OR bed, head on pillow, safety belt at thigh, arms secured on padded arm boards at <90 degrees abduction. Bump under right buttock. Legs uncrossed with pillow under knees, gel pad to heels, tape over blanket to lower legs.
--- NOTE | 2023-03-09 10:23 | SUR.OPER ---
Viable baby boy born at 1013. Placenta delivered at 1015. Cord blood and placenta given to OB RN.
[2023-03-09 11:16] VITALS: BP 121/99; PULSE 115; RESP 17; TEMP 36.2; O2SAT 100
[2023-03-09 11:19] VITALS: BP 137/82; PULSE 105; RESP 26; O2SAT 99
--- NOTE | 2023-03-09 11:20 | P.OP_ITS ---
Operative Date/Time/Diagnoses Date of procedure: 03/09/23 Time of procedure: 09:50 Pre-op diagnosis: Secondary arrest of labor due to cephalopelvic disproportion Gestational diabetes Large for gestational age Request for sterilization Post-op diagnosis: same Procedure & Clinicians Procedure: Primary section (low transverse cervical) Bilateral salpingectomy for sterilization Same procedure as scheduled: Yes Indications: Deborah is a 32-year-old at 40+ 3 weeks gestational age who was admitted on 03/08/2023 and active labor. She has failed to progress despite Pitocin augmentation and is now unchanged after 5+ hours at 8 cm dilation, complete effacement, with the vertex at -3 station. In addition the patient has requ ested elective sterilization. After discussion of all options the patient has elected to proceed with a primary section and bilateral salpingectomy for sterilization. Surgeon: Zachariah Alas Infection Prevention Coordinator: [place] Seth Reason for Infection Prevention Coordinator: Infection Prevention Coordinator required for the safe, effective, and timely completion of this surgery. Anesthesia Type: Spinal Operative Notes Findings: Viable male infant BW 3670 gms. (8 lbs. 1.5 oz.), Apgars 8/9, delivered from the vertex presentation. Umbilical cord has a loose true knot. Normal gravid anatomy. Closure Type: primary Specimen(s): cord blood Intraoperative meds administered: Acetaminophen, Ketorolac and Pitocin Applied: Catheter Estimated Blood Loss (mL): 750 Blood products transfused: none Procedure in detail: With her informed written consent, the patient was taken to the operating room and placed in the supine position for a primary section procedure, for the indication(s) above. The abdomen was prepped and draped in the usual manner for section and a pre-surgical timeout was taken per [facility] OR protocol. Once effective anesthesia was confirmed, a 13 cm transverse Pfannenstiel incision was made in the skin and taken down through the subcutaneous tissues to the deep fascia. The deep fascia was incised transversely, the rectus abdominal eyes bluntly and sharply, and the peritoneal cavity entered without difficulty. The lower uterine segment was visualized and the position/presentation palpated. A transverse incision at or above the vesicouterine reflection was made with Metzenbaum scissors and t ransverse hysterotomy performed near the midline. Amniotomy revealed lightly meconium stained fluid. The incision was extended bilaterally with digital traction and the was delivered easily from the vertex presentation. The infant was vigorous and cord clamping delayed for 60 seconds. The placenta was delivered intact using gentle cord traction and fundal massage.The uterine cavity was then cleared of any clot/debris first with a sloppy wet lap tape followed by a dry lap tape. Ring forceps were then applied to the angles and the midline of the incised AALIYAH. A primary closure of the uterus was then accomplished with #1 CCGS in a running interlocking stitch followed by a 2nd layer of #1 CCGS in a running interlocking imbricating stitch. One additional [id number] suture was required to achieve complete hemostasis. An ascending uterine artery suture was required on the right side. Attention was then turned to performance of the bilateral salpingectomy. The distal portion of the right fallopian tube was grasped and elevated. Using a PowerSeal bipolar device, the fimbria varicose was coagulated and divided followed by sequential coagulation and division of the mesosalpinx across the mesosalpinx to the level of the cornu where the proximal tube was coagulated and divided. The right tube was then removed. Attention was then turned to the left adnexa and the left fallopian tube was removed in exactly the same manner as the right had been. Once pelvic hemostasis was assured, the bladder flap and anterior peritoneum were closed with a running 2-0 Vicryl suture and the fascia closed with #1 Vicryl in a running stitch initiated at both angles and tying separately near the midline. The subcutaneous tissues were reapproximated with 2-0 plain catgut suture using inverted interrupted stitches. The skin edges were then brought together with 4-0 Monocryl in a subcuticular closure and the incision was reinforced with 1 Steri-Strips. An appropriate compression dressing was applied and the patient transferred to PACU for recovery and subsequent transfer to the Center for recuperation. Complications: none Baby 1: Gender: Male Position: Left Occiput Anterior Placental Delivery Description: Spontaneous Cord Vessel Description: 3 Vessels and True Knot score (1 min): 8 score (5 min): 9 weight: 8 lb 1.455 oz Post-operative Condition: stable Disposition: PACU Aftercare: routine postop
[2023-03-09 11:24] VITALS: BP 110/74; PULSE 80; RESP 15; O2SAT 100
[2023-03-09 11:29] VITALS: BP 114/81; PULSE 81; RESP 20; O2SAT 100
[2023-03-09 11:34] VITALS: BP 124/65; PULSE 91; RESP 21; TEMP 36.7; O2SAT 100
--- NOTE | 2023-03-09 11:34 | SUR.PHASEI ---
Report called to Chasity.
--- NOTE | 2023-03-09 11:55 | SUR.PHASEI ---
Patient transferred to the center. VS stable. Fundus checked with Chasity. IV and evans patent.
[2023-03-09] MEDS: MORPHINE 2 MG/ML INJ IV ×2 (12:25→16:37)
[2023-03-09] MEDS: OXYTOCIN PREMIX 30 UNIT/500 ML PLAST..BAG 200 UNIT IV (12:37)
[2023-03-09] MEDS: diphenhydrAMINE 50 MG/ML VIAL 25 MG IV ×3 (14:09→21:42)
[2023-03-09] MEDS: KETOROLAC 30 MG/ML VIAL IV ×2 (17:15→23:34)
[2023-03-09] MEDS: ACETAMINOPHEN 325 MG TABLET 650 MG PO (21:40)
[2023-03-09] MEDS: FAMOTIDINE 20 MG/2 ML VIAL IV (21:42)
[2023-03-09] MEDS: OXYCODONE IR 5 MG TABLET PO (21:42)
--- NOTE | 2023-03-09 21:54 | PC.NURSE ---
pt with hives on arms and torso; eye lids swollen. Dr. He updated and famotidine and nubain ordered. Nubain out of stock. Famotidine and diphenhydramine administered with pain medications. Pt stated that she gets hives with stress and had them after her first child as well. Pain controlled with medication; has no pain at rest, however, when she coughs or her belly is pressed on she rates 10/10.
[2023-03-10] MEDS: OXYCODONE IR 5 MG TABLET PO ×2 (04:38→10:40)
[2023-03-10] MEDS: ACETAMINOPHEN 325 MG TABLET 650 MG PO ×3 (04:38→18:22)
[2023-03-10] MEDS: KETOROLAC 30 MG/ML VIAL IV (05:34)
[2023-03-10 06:18] LABS: Add Manual Diff / Slide Review NO; Basophils Absolute Auto 0 /uL (0-100); Basophils Percent Auto 0.3 % (0-2); Eosinophils Absolute Auto 100 /uL (0-450); Hematocrit 23.8 % (36-46); Hemoglobin 8.1 g/dL (12.0-16.0); Lymphocytes Absolute Auto 2700 /uL (1100-4500); Lymphocytes Percent Auto 23.1 % (25-40); Mean Corpuscular HGB Conc 34.2 % (30-36); Mean Corpuscular Hemoglobin 28.7 PG (26-34); Mean Corpuscular Volume 83.9 fL (80-100); Monocytes Absolute Auto 800 /uL (0-900); Monocytes Percent Auto 6.7 % (3-14); Neutrophils Absolute Auto 8000 /uL (1500-7000); Neutrophils Percent Auto 68.9 % (50-75); Platelet Count 190 X10^3/uL (150-400); Red Blood Cell Count 2.83 X10^6/uL (4.0-5.2); Red Cell Distribution Width 14.1 % (11.6-14.8); White Blood Cell Count 11.7 X10^3/uL (4.5-11.0)
--- NOTE | 2023-03-10 09:23 | P.PNOB_ITS ---
Subjective - OB Subjective Patient comments: no complaints, pain well controlled, incisional pain and tolerating diet; no flatus present baby status: doing well and bottle feeding well; no nursing well [place] feeding status: breast and bottle feeding Narrative: Deborah has done well overnight with good pain control. She is had minimal vaginal bleeding. She is not experienced any flatus yet. She is tolerating regular diet and is ambulating to the bathroom with her catheter removed. Her baby is doing well after initially having some low blood sugars. She is having difficulty with is primarily bottle-feeding at this point. environmental remediation consultant will visit with her today. Date Patient Seen: 03/10/23 Time Patient Seen: 09:24 Exam Vital Signs (past 8 hours): Oxygen Delivery Method Room Air Const General: cooperative and comfortable Nutritional Appearance: average body habitus Orientation: alert and oriented x3 HENMT Head: normal to inspection, atraumatic and abrasion Ears: hearing grossly normal bilaterally Face and sinus: face symmetric Eyes General: appearance normal, both eyes and all related structures Conjunctivae: conjunctivae normal Sclera: sclerae normal EOM: EOM intact bilaterally Neck Neck: normal visual inspection Resp Effort & Inspection: normal respiratory effort and able to speak in complete sentences Auscultation: clear to auscultation bilaterally Cardio Rate: regular rate Rhythm: regular rhythm Heart Sounds: S1 normal, S2 normal and no murmurs GI Inspection: normal to inspection and incision (Surgical dressing clean and dry) Palpation: soft, no hepatosplenomegaly and tender (Mild, diffuse postsurgical tenderness) Auscultation: hypoactive bowel sounds External Female Exam: other (No significant bleeding noted) Extrem General: no calf tenderness Psych Appearance: grossly normal Mental Status: mental status grossly normal Speech and Movement: speech and movement normal Mood: congruent mood Affect: normal affect Attitude: cooperative Thought Process: normal Thought Content: normal Judgment: judgment good Objective Labs 03/10/23 06:05 Labs: Laboratory Results - last 24 hr 03/10/23 06:05 WBC 11.7 H RBC 2.83 L Hgb 8.1 L Hct 23.8 L MCV 83.9 MCH 28.7 MCHC 34.2 RDW 14.1 Plt Count 190 Neut % (Auto) 68.9 Lymph % (Auto) 23.1 L [place] % (Auto) 6.7 Eos % (Auto) 1.0 L Baso % (Auto) 0.3 Neut # (Auto) 8000 H Lymph # (Auto) 2700 [place] # (Auto) 800 Eos # (Auto) 100 Baso # (Auto) 0 Assessment & Plan Assessment and Plan (1) LGA (large for gestational age) fetus affecting management of mother: Status: Acute (2) Gestational diabetes mellitus (GDM): Problem details: Diet controlled Status: Acute (3) delivery, delivered, current hospitalization: Status: Acute Plan day: 1 plan OB: routine postop care Comments: Will initiate iron infusion today and tomorrow prior to anticipated discharge Time Spent With Patient Time: Total time spent is greater than 50% in coordination of care (as documented) at patient's floor/unit and/or counseling patient: Time with patient: 15-24 minutes
[2023-03-10] MEDS: PRENATAL VIT,CALC/IRON/FOLIC 1 TABLET 1 TAB PO (09:52)
[2023-03-10] MEDS: DOCUSATE 100 MG CAPSULE PO (09:52)
[2023-03-10] MEDS: IRON SUCROSE 300 MG in SODIUM CHLORIDE 0.9% 250 ML 176.667 MG IV (09:52)
[2023-03-10] MEDS: IBUPROFEN 600 MG TABLET PO ×2 (13:15→19:59)
[2023-03-10] MEDS: OXYCODONE IR 10 MG TABLET PO ×2 (15:06→20:00)
--- NOTE | 2023-03-10 17:48 | PM.OBPN.1 ---
Subjective - OB Subjective Patient comments: incisional pain baby status: doing well feeding status: breast and bottle feeding Date Patient Seen: 03/10/23 Time Patient Seen: 15:00 Interval history: Patient complaining of 10/10 incisional pain with ambulation. She denies pain when resting. She has been up at urinated. No nausea. Exam Vital Signs (past 8 hours): Blood pressure 110/72, pulse 81, temperature 98? Oxygen Delivery Method Room Air Narrative Exam Narrative: Patient's abdomen is soft with no distention but mild tenderness. Dressing is clean, dry, intact. Objective Labs 03/10/23 06:05 Labs: Laboratory Results - last 24 hr 03/10/23 06:05 WBC 11.7 H RBC 2.83 L Hgb 8.1 L Hct 23.8 L MCV 83.9 MCH 28.7 MCHC 34.2 RDW 14.1 Plt Count 190 Neut % (Auto) 68.9 Lymph % (Auto) 23.1 L [place] % (Auto) 6.7 Eos % (Auto) 1.0 L Baso % (Auto) 0.3 Neut # (Auto) 8000 H Lymph # (Auto) 2700 [place] # (Auto) 800 Eos # (Auto) 100 Baso # (Auto) 0 Assessment & Plan Assessment and Plan (1) LGA (large for gestational age) fetus affecting management of mother: Status: Acute (2) Gestational diabetes mellitus (GDM): Problem details: Diet controlled Status: Acute (3) delivery, delivered, current hospitalization: Status: Acute Plan day: 1 Comments: Patient with incisional pain. Increased oxycodone to 10 mg every 4 hours. No evidence of complications from surgery. Time Spent With Patient Time: Total time spent is greater than 50% in coordination of care (as documented) at patient's floor/unit and/or counseling patient: Time with patient: less than 15 minutes
[2023-03-11] MEDS: IBUPROFEN 600 MG TABLET PO ×3 (01:30→08:50)
[2023-03-11] MEDS: ACETAMINOPHEN 325 MG TABLET 650 MG PO ×3 (01:31→13:18)
[2023-03-11] MEDS: OXYCODONE IR 5 MG TABLET PO ×3 (01:32→13:20)
[2023-03-11] MEDS: DOCUSATE 100 MG CAPSULE PO (07:38)
[2023-03-11] MEDS: IRON SUCROSE 300 MG in SODIUM CHLORIDE 0.9% 250 ML 176.667 MG IV (08:49)
[2023-03-11 11:11] LABS: Hematocrit 24.8 % (36-46); Hemoglobin 8.5 g/dL (12.0-16.0)
--- NOTE | 2023-03-11 12:45 | PM.OBDS.1 ---
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 Unfortunately she had secondary arrest of descent and dilatation for greater than 5 hours with the cervix not dilating beyond 8 cm, completely effaced, and the vertex at -3 station. After consideration of all options, the patient opted for primary delivery and was delivered by primary section on the morning of 03/09/2023. Her infant was a male with Apgars of 8/9 and a weight of 3670 g (8 lb 1.5 oz). Following delivery the patient has done extremely well with prompt return of bowel and bladder function, she is ambulating independently, tolerating regular diet, and her pain is well relieved with oral pain medications. Her hemoglobin and hematocrit decreased significantly due to operative blood losses and she received 2 doses of 300 mg of iron sucrose IV prior to discharge. She will be discharged at this time in an afebrile normotensive condition to home after counseling regarding precautionary symptoms, limitations of activity, medications, and plans for follow-up which will be in 1 week. Medications at discharge will include resumption of all pre delivery medications, oxycodone 10 mg every 4-6 hours as needed for pain, dispense 20 with no refills, and ibuprofen 600 mg p.o. q.6 hours as needed pain dispensed 60 with 2 refills. Peripartum Data Delivery Method: Section Laceration Description: None Episiotomy description: None complications: none Discharge Diagnosis (1) LGA (large for gestational age) fetus affecting management of mother: Status: Acute (2) Gestational diabetes mellitus (GDM): Status: Acute Problem Details: Diet controlled (3) delivery, delivered, current hospitalization: Status: Acute Status at Discharge Cognitive/behavioral status at discharge: oriented Functional status at discharge: independent ambulation Overall status at discharge: patient is progressing back to baseline Time Spent with Patient Time attestation: Total time spent providing and/or coordinating discharge services: Time spent: Less than 30 minutes Objective Labs 03/11/23 11:05 Labs: Laboratory Results - last 24 hr 03/11/23 11:05 Hgb 8.5 L Hct 24.8 L Exam Vital Signs (past 8 hours): Oxygen Delivery Method Room Air Const General: cooperative and comfortable Nutritional Appearance: average body habitus Orientation: alert and oriented x3 HENMT Head: normal to inspection, atraumatic and abrasion Ears: hearing grossly normal bilaterally Face and sinus: face symmetric Eyes General: appearance normal, both eyes and all related structures Conjunctivae: conjunctivae normal Sclera: sclerae normal EOM: EOM intact bilaterally Neck Neck: normal visual inspection Resp Effort & Inspection: normal respiratory effort and able to speak in complete sentences Auscultation: clear to auscultation bilaterally Cardio Rate: regular rate Rhythm: regular rhythm Heart Sounds: S1 normal, S2 normal and no murmurs GI Inspection: normal to inspection and incision (Compression dressing removed, Aquacel applied, incision intact) Palpation: soft, no hepatosplenomegaly and tender (Mild, diffuse postsurgical tenderness) External Female Exam: other (No significant bleeding noted) Extrem General: no calf tenderness Psych Appearance: grossly normal Mental Status: mental status grossly normal Speech and Movement: speech and movement normal Mood: congruent mood Affect: normal affect Attitude: cooperative Thought Process: normal Thought Content: normal Judgment: judgment good Discharge Plan Discharge Plan Patient Disposition: Home Provider Discharge Comment: Please review the written instructions you received at the time of discharge from the hospital. Your follow-up appointment will be scheduled for 1 week after delivery and I look forward to seeing you then. If however in the meanwhile you have any issues, concerns, or questions, please contact the office either through the office phone at [phone], or via the patient portal. Discharge orders & Medications Prescriptions: New ibuprofen 600 mg Tablet 600 mg PO Q6H Qty: 60 2RF oxycodone 10 mg Tablet 10 mg PO Q6H PRN (Reason: Pain, Severe (7-10)) Qty: 20 0RF Continued (DME) blood-glucose meter [Blood Glucose Monitoring] Kit See Rx Instructions .ROUTE .MEDSUPPLY Qty: 1 0RF Rx Instructions: Check AM fasting bs every morning, randomly 2 hours after meals (DME) lancets [Comfort Lancets] Misc See Rx Instructions .ROUTE .MEDSUPPLY Qty: 100 3RF Rx Instructions: 4 times a day (DME) Blood Glucose Test Strip See Rx Instructions .ROUTE .MEDSUPPLY Qty: 100 3RF Rx Instructions: Test morning fasting blood sure, check bs randomly 2 hours after meals up to 4x daily ondansetron 4 mg tablet,disintegrating 4 mg PO Q6-8H PRN (Reason: for nausea/vomiting) Qty: 20 2RF prenat.vits,lyndsay,doy-pald-gnyke Tablet 1 tab PO DAILY metoclopramide HCl [Reglan] 10 mg tablet 10 mg PO Q6H PRN (Reason: nausea and vomiting) Qty: 20 2RF metoclopramide HCl [Reglan] 10 mg tablet 10 mg PO Q6H PRN (Reason: nausea and vomiting) Qty: 30 3RF promethazine 12.5 mg suppository 12.5 mg WA Q4-6H PRN (Reason: nausea and vomiting) Qty: 12 3RF Follow up/Referrals: Yesi Levy MD [Primary Care Provider] - (Appontment with on at 2:25 pm for aquacel removal; at 2:00 pm with Danielle Dupree.) Zachariah Alas MD [Physician] - Discharge Health Status Multidrug resistant organism: No MDRO Diet/Activity/Treatments Diet: Diet as Tolerated Activity: As tolerated Other treatments: Uwpw-knc-oxhyhin Tylenol may also be used for additional pain relief. Tekw-kpz-bogvuqj stool softeners and/or MiraLax may be used as needed for constipation. Skin/Wound/Dressing Care Report to your healthcare provider any signs of infection, such as:: chills, fever, increased pain, unusual drainage and unusual redness Dressing: Dressing will be removed at the time of your one-week postop visit Visit Report/Discharge Packet Instructions: DI for , DI for and Nipple Soreness, DI for Prescription Opioid Use Stand Alone Forms: Patient Portal/API, Stroke Signs & Symptoms Discharge Data Primary Care Provider: Yesi Levy
== END 2023-03-11 14:39 | disposition home or self-care (01) | DRG 784 ==
PROVIDERS: Admitting Provider Obstetrics & Gynecology; PCP Internal Medicine; Referring Provider Obstetrics & Gynecology; Visit Provider Obstetrics & Gynecology
PROC: 10D00Z1 Extraction of Products of Conception, Low, Open Approach (ICD-10-PCS; CPT 59514; principal; 2023-03-09 09:45)
DX: O62.1 Secondary uterine inertia (principal); O99.03 Anemia complicating the puerperium; D62 Acute posthemorrhagic anemia; O24.420 Gestational diabetes mellitus in childbirth, diet controlled; O36.63X0 Maternal care for excessive fetal growth, third trimester, not applicable or unspecified; O65.9 Obstructed labor due to maternal pelvic abnormality, unspecified; O48.0 Post-term pregnancy; Z3A.40 40 weeks gestation of pregnancy; O76 Abnormality in fetal heart rate and rhythm complicating labor and delivery; Z30.2 Encounter for sterilization; Z37.0 Single live birth
CPT/HCPCS: 36415; 59025; 59050; 59510; 59514; 76815; 82962; 85014; 85018; 85025; 86850; 86900; 86901; G0378; G0379; J0690; J1200; J1756; J1885; J2270; J2274; J2405; J2590; J3010

== ENCOUNTER 2023-09-11 11:31 | Emergency (ER) | payer OTHER, SELFPAY ==
[2023-09-11] VITALS (9 sets, daily range): BP systolic 100–109; BP diastolic 66–68; PULSE 89–125; RESP 18–20; TEMP 36.6–36.8; O2SAT 99–100; BMI 28.0
--- NOTE | 2023-09-11 12:23 | ED.FEMALEGU ---
HPI - Female Genitourinary General Chief complaint: Urogenital-Female Stated complaint: Abd Pain Time Seen by Provider: 09/11/23 11:52 Source: patient Mode of arrival: Wheelchair History of Present Illness HPI Narrative: Patient is a 32-year-old healthy presents today with vaginal pain. She reports that she tore while giving she says that she has opened. She denies any sort of trauma she reports that she is safe she has no bleeding. But in his in quite severe pain. She reports that there is pain near her rectum but in her vagina. Denies any fever chills. No painful frequent urination Related Data Previous Rx's Medication Instructions Recorded metoclopramide HCl 10 mg tablet 10 mg PO Q6H PRN nausea and 08/07/22 (Reglan) vomiting #20 tabs metoclopramide HCl 10 mg tablet 10 mg PO Q6H PRN nausea and 08/07/22 (Reglan) vomiting #30 tabs hydrocodone 5 mg-acetaminophen 325 1 tab PO Q6H PRN pain #10 tabs 09/11/23 mg tablet levofloxacin 750 mg tablet 750 mg PO DAILY 7 days #7 tabs 09/11/23 metronidazole 500 mg tablet 500 mg PO Q8H 7 days #21 tabs 09/11/23 Allergies Allergy/AdvReac Type Severity Reaction Status Date / Time No Known Drug Allergies Allergy Verified 09/11/23 11:36 Patient History Medical History History of gestational diabetes Episiotomy pain Gestational diabetes mellitus (GDM) Kidney stones (~2006) Surgical History History of female sterilization History of delivery H/O tooth extraction (~2012) Family History Mother No problems noted. Father History of heart artery stent History of open heart surgery Diabetes mellitus Pneumonia Grandmother Arthritis Grandfather No problems noted. Grandmother No problems noted. Grandfather Old age Family/Other Diabetes mellitus History of open heart surgery Brother No problems noted. Sister No problems noted. alcohol intake frequency: other Substance Use Type: does not use Exam Initial Vital Signs Initial Vital Signs: Vital Signs Temperature 98.2 F 09/11/23 11:31 Pulse Rate 125 H 09/11/23 11:31 Respiratory Rate 18 09/11/23 11:31 Blood Pressure 106/66 09/11/23 11:31 Pulse Oximetry 99 09/11/23 11:31 Oxygen Delivery Method Room Air 09/11/23 11:31 GENERAL: Well-appearing, well-nourished and in no acute distress. CARDIOVASCULAR: peripheral pulses in tact, cap refill <2 sec RESPIRATORY: No respiratory distress, speaks in full sentences without difficulty ABDOMEN: Soft, nontender, no guarding or rebound PELVIC: Very painful, External genitalia is normal, no vaginal bleeding, not able to do a speculum exam due to pain she does have thin white discharge she reports pain in her perineal area but no obvious tear or abscess. On exam she has minimal pain on pelvic floor. EXTREMITIES: Normal range of motion, no clubbing or edema. Neurovascularly intact NEUROLOGICAL: Cranial nerves II through XII grossly intact. Normal gait and speech. SKIN: Warm, dry, no petechiae, no rashes or lesions. Course Orders Ordered: Discontinued Medications Hydrocodone Bitart/Acetaminophen (Hydrocodone/Acet 5/325 Tablet) 1 tab PO NOW ONE Stop: 09/11/23 18:04 Last Admin: 09/11/23 18:05 Dose: 1 tab Documented By: ANUP Hydromorphone HCl (Hydromorphone 0.5 Mg Inj) 0.5 mg IV NOW ONE Stop: 09/11/23 13:54 Last Admin: 09/11/23 14:03 Dose: 0.5 mg Documented By: RB Ketorolac Tromethamine (Ketorolac 30 Mg/Ml Vial) 15 mg IV NOW ONE Stop: 09/11/23 13:54 Last Admin: 09/11/23 14:03 Dose: 15 mg Documented By: RB Levofloxacin (Levofloxacin 250 Mg Tablet) 750 mg PO NOW ONE Stop: 09/11/23 17:47 Last Admin: 09/11/23 18:00 Dose: 750 mg Documented By: ANUP Metronidazole (Metronidazole 500 Mg Tablet) 500 mg PO NOW ONE Stop: 09/11/23 17:47 Last Admin: 09/11/23 18:00 Dose: 500 mg Documented By: ANUP Morphine Sulfate (Morphine 4 Mg/Ml Inj) 4 mg IV NOW ONE Stop: 09/11/23 12:53 Last Admin: 09/11/23 12:58 Dose: 4 mg Documented By: MPO Vital Signs Vital signs: Vital Signs - 8 hr 09/11/23 11:31 09/11/23 13:31 09/11/23 13:33 Temperature 98.2 F Pulse Rate 125 H 108 H 110 H Respiratory Rate 18 Blood Pressure 106/66 Pulse Oximetry 99 100 100 Oxygen Delivery Method Room Air 09/11/23 13:33 09/11/23 15:40 09/11/23 15:40 Temperature Pulse Rate 91 H Respiratory Rate Blood Pressure 109/67 100/68 Pulse Oximetry 99 Oxygen Delivery Method 09/11/23 15:42 09/11/23 16:00 09/11/23 16:30 Temperature Pulse Rate 100 H 92 H 89 Respiratory Rate 20 Blood Pressure 100/68 Pulse Oximetry 99 100 99 Oxygen Delivery Method Room Air 09/11/23 17:00 Temperature Pulse Rate 94 H Respiratory Rate Blood Pressure Pulse Oximetry 100 Oxygen Delivery Method MDM - Female Genitourinary Lab Data 09/11/23 14:15 09/11/23 14:15 Labs: Lab Results 09/11/23 09/11/23 Range/Units 14:15 15:10 WBC 15.8 H (4.5-11.0) X10^3/uL RBC 4.48 (4.0-5.2) X10^6/uL Hgb 12.7 (12.0-16.0) g/dL Hct 38.0 (36-46) % MCV 84.7 (80-100) fL MCH 28.3 (26-34) PG MCHC 33.4 (30-36) % RDW 13.4 (11.6-14.8) % Plt Count 325 (150-400) X10^3/uL Neut % (Auto) 78.9 H (50-75) % Lymph % (Auto) 14.6 L (25-40) % [place] % (Auto) 6.1 (3-14) % Eos % (Auto) 0.1 L (2-4) % Baso % (Auto) 0.3 (0-2) % Neut # (Auto) 66428 H (4132-6204) /uL Lymph # (Auto) 2300 (9546-6549) /uL [place] # (Auto) 1000 H (0-900) /uL Eos # (Auto) 0 (0-450) /uL Baso # (Auto) 0 (0-100) /uL Sodium 138 (137-145) mmol/L Potassium 4.1 (3.4-5.1) mmol/L Chloride 106 (98-107) mmol/L Carbon Dioxide 27 (22-32) mmol/L BUN 11 (7-17) mg/dL Creatinine 0.50 L (0.52-1.04) mg/dL Estimated GFR > 60 (>60) mL/min BUN/Creatinine Ratio 22.0 (6-22) Glucose 97 (70-100) mg/dL Calcium 8.9 (8.4-10.2) mg/dL Total Bilirubin 1.0 (0.2-1.3) mg/dL AST 61 H (14-36) IU/L ALT 112 H (<35) IU/L Alkaline Phosphatase 112 (38-126) U/L Total Protein 8.2 (6.3-8.2) g/dL Albumin 4.3 (3.5-5.0) g/dL Globulin 3.9 (1.7-4.1) g/dL Albumin/Globulin Ratio 1.1 (1.0-2.8) HCG, Quant Cancelled Urine Color Yellow Urine Appearance Clear Urine pH 6.0 (4.5-8.0) Ur Specific [place] 1.025 (1.000-1.035) Urine Protein Trace H (Negative) Urine Glucose (UA) Negative (Negative) g/dL Urine Ketones Negative (NEGATIVE) Urine Occult Blood Negative (Negative) Urine Nitrate Negative (Negative) Urine Bilirubin Negative (NEGATIVE) Urine Urobilinogen 0.2 (0.2) E.U./dL Ur Leukocyte Esterase Trace H (NEGATIVE) Urine RBC 0-1/hpf (0-5/HPF) Urine WBC 1-5/hpf (0-5/HPF) Ur Squamous Epith Cells 1-5 /hpf (0-5/HPF) Urine Bacteria Few (2-10) H (None) Urine Mucus 2+ H (Negative) Ur Culture Indicated? Specimen cultured Vol Urine Centrifuged 10ml (spun) Ur Chlamydia DNA (PCR) Not detected N gonorrhoeae DNA (PCR) Not detected Imaging Data CT scan - abdomen/pelvis: Radiologist's Impression: ADDENDUMThis report includes an Addendum and supersedes previous reports for this exam. PROCEDURE: CT ABDOMEN PELVIS W CON INDICATIONS: lower ab pain and pain in vagina TECHNIQUE: After the administration of intravenous contrast, axial sections acquired from the lung bases to the pubic symphysis. Coronal and sagittal reformats were performed. For radiation dose reduction, the following was used: automated exposure control, adjustment of mA and/or kV according to patient size. COMPARISON: [facility], , PELVIC COMPLETE, 09/11/2023, 14:56. FINDINGS: Image quality: Diagnostic. Lower Chest: No significant findings. ABDOMEN: Liver: No solid mass. Gallbladder: No radiopaque gallstones or wall thickening. Biliary ducts: No biliary dilation. Pancreas: No ductal dilation. Spleen: Size is within normal limits. Adrenal Glands: No adrenal nodules. Kidneys and Ureters: No hydronephrosis. No solid mass. No complex renal cystic lesion which requires follow up. Stomach and Bowel: Normal colonic caliber, without significant wall thickening. Appendix is mildly enlarged measuring 7.5 cm in diameter (normal value equal or less than 7 mm). There is subtle stranding. A tiny air collection is present within the appendiceal lumen. Peritoneum: No abnormal intraperitoneal fluid. No free air. Ventral Wall: No significant ventral hernia. Abdominal Nodes: No retroperitoneal or mesenteric adenopathy by size criteria. Vessels: Aorta and inferior vena cava are normal in size. PELVIS: Pelvic Organs: Uterus is grossly normal. There is a corpus luteal cyst in the right ovary measuring 1.3 cm. Left ovary is unremarkable.. Bladder: No bladder wall thickening, accounting for underdistention. Pelvic Nodes: No enlarged lymph nodes. Miscellaneous: No inguinal hernias are seen. Bones: No aggressive osseous abnormality. IMPRESSION: 1. Appendix is slightly enlarged measuring 7.5 cm in diameter. There is subtle stranding around the appendix. The finding could represent early acute appendicitis. There is, however, small amount of air collection within the appendiceal lumen. Recommend clinical correlation for early acute appendicitis. 2. A small corpus luteal cyst in the right ovary. 3. No free fluid in pelvis. Dictated by: Nicol Whelan M.D. on 09/11/2023 at 16:02 Approved by: Nicol Whelan M.D. on 09/11/2023 at 16:10 ADDENDUM: There is a small perianal fluid collection on the left measuring 2.2 x 1.7 cm. In the contralateral right side, there is a smaller fluid collection measuring 1.2 x 2.0 cm. There is subtle peripheral enhancement. The findings suggest small perianal abscesses. The result was discussed with Dr. Cruz in ER. Dictated by: Nicol Whelan M.D. on 09/11/2023 at 16:45 US - ASSISTANT GROCERY: Radiologist's Impression: PROCEDURE: US PELVIC COMPLETE INDICATIONS: Severe vaginal pain. Menstrual period 2 weeks ago. TECHNIQUE: Real-time scanning was performed of the pelvic organs, with image documentation. Additional endovaginal scanning was necessary due to incomplete visualization of the adnexal and endometrial structures by transabdominal scanning. COMPARISON: [facility], CT, CT ABDOMEN PELVIS W CON, 09/11/2023, 15:45. FINDINGS: Uterus: Uterus is anteverted and normal in size at 9.0 x 5.3 x 5.0 cm. The myometrium is homogeneous. The endometrium measures 4.6 mm combined thickness. Endometrium is somewhat heterogeneous with indistinct junctional zone. There is trace amount of fluid within the endometrial cavity. Ovaries: The right ovary measures 3.9 x 2.5 x 1.3 cm, with a calculated ovarian volume of 6.6 cc. The left ovary measures 2.6 x 1.2 x 1.4 cm, with a calculated ovarian volume of 2.1 cc. The ovaries have a normal sonographic appearance. Less than 12 follicles can be seen in each ovary. No adnexal masses are seen. There is positive arterial and venous flow to right ovary on Doppler ultrasound. Cannot document flow in left ovary on Doppler ultrasound. Other: No pathologic free abdominal or pelvic fluid. Incidentally noted is 114 cc postvoid residual. Ureteral jets were not visualized. IMPRESSION: 1. Endometrium is somewhat heterogeneous with indistinct junctional zone, suggesting adenomyosis. Consider gynecological MRI if clinical symptoms persist. 2. Trace amount of fluid within the endometrium. 3. Although ovaries are normal in echotexture. Unable to document arterial or venous flow on Doppler ultrasound to the left ovary. Cannot rule out ovarian torsion. Recommend clinical correlation and follow-up imaging if clinically indicated. 4. No free fluid in pelvis. We strive to produce accurate, complete, and clear reports of imaging services. To assist us in improving patient care, this report was composed using standard report templates and voice recognition software. Therefore, it may contain abnormal punctuation, insertions and/or omissions. Occasional wrong-word or sound-alike substitutions may occur. Though we review the report and make efforts to correct it, we do recommend that the report be read carefully in proper context to recognize any text inaccuracies. Dictated by: iNcol Whelan M.D. on 09/11/2023 at 16:29 Approved by: Nicol Whelan M.D. on 09/11/2023 at 16:45 [facility] Narrative Medical decision making narrative: Patient healthy 32-year-old female presents today with severe vaginal pain. On exam no obvious source of pain or injury but very tender . Blood work reviewed does show leukocytosis 15.8, but no other abnormality urinalysis has few bacteria, vaginal cultures are pending wet mount positive for yeast Imaging reviewed questionable early appendicitis on CT and possible perirectal abscess ultrasound did show decreased flow to the left over Patient mildly tender in her right lower quadrant pain maybe early appendicitis but does not quite explain severe vaginal pain. Ultrasound shows questionable decreased flow to left ovary however she really has absolutely no pain in her left lower quadrant, does not clinically correlate. CT also suggested perirectal abscess the patient denies any sort of pain this may be referred pain causing pain in her episiotomy site 1650 Dr. Bateman recommended antibiotics close monitoring return as needed 1730 Dr. Youngblood in ED to see and evaluate patient. Thinks that is probably early perirectal abscess for referred pain to a episiotomy site. She will have the office call and check on her tomorrow. She is familiar with patient. Patient will be started on Levaquin Discharge Plan Departure Patient Disposition: Home Clinical Impression: Abscess of rectum, Episiotomy pain Instructions: DI for Anal Abscess Activity Restrictions/Additional Instructions: *You have been diagnosed with episiotomy pain with rectal abscess *What to do: At this time you likely have of rectal abscess causing referred pain into your vagina at your episiotomy site. CT also showed maybe early appendicitis. Recommend high-fiber diet try not to get constipated *Continue to take medications as directed Levaquin 750 mg once a day for 7 days Flagyl 500 mg 3 times a day for 7 days Tina 1 tablet every 6 hours if needed for severe pain Diflucan 200 mg after you finish antibiotics *Follow up with your primary care provider in 2-3 days or call [phone] Follow-up with Dr. Youngblood *Return to ER if you should have increasing pain fever chills or any new, worsening or concerning symptoms CONTROLLED SUBSTANCE DISCHARGE (Narcotoic/benzodiazepine/Flexeril/Phenergan) 1. You have been prescribed narcotic medications, it does have acetaminophen/Tylenol/paracetamol in it, DO NOT TAKE MORE THAN 4,00mg in 24 hours of Tylenol. TRAMADOL DOES NOT CONTAIN TYLENOL 2. Please understand that we cannot provide further refills of narcotics, benzodiazepines or controlled substances through the ED and her pain management will need to be through your provider. 3. While on these medications you cannot drive or operate heavy machinery. 4. You cannot sign legal documents or perform any duties such as this. 5. As long as you're taking opiate pain medications he should also be taking a stool softener such as Colace, Dulcolax, MiraLAX or prune juice, to help avoid constipation. Prescriptions: New hydrocodone-acetaminophen 5-325 mg tablet 1 tab PO Q6H PRN (Reason: pain) Qty: 10 0RF metronidazole 500 mg tablet 500 mg PO Q8H 7 Days Qty: 21 0RF levofloxacin 750 mg tablet 750 mg PO DAILY 7 Days Qty: 7 0RF No Action metoclopramide HCl [Reglan] 10 mg tablet 10 mg PO Q6H PRN (Reason: nausea and vomiting) Qty: 20 2RF metoclopramide HCl [Reglan] 10 mg tablet 10 mg PO Q6H PRN (Reason: nausea and vomiting) Qty: 30 3RF Referrals: Yesi Levy MD [Primary Care Provider] - Stand Alone Forms: Patient Portal/API
[2023-09-11] MEDS: MORPHINE 4 MG/ML INJ IV (12:58)
--- NOTE | 2023-09-11 13:53 | DI.US.S_ITS ---
PROCEDURE: US PELVIC COMPLETE INDICATIONS: Severe vaginal pain. Menstrual period 2 weeks ago. TECHNIQUE: Real-time scanning was performed of the pelvic organs, with image documentation. Additional endovaginal scanning was necessary due to incomplete visualization of the adnexal and endometrial structures by transabdominal scanning. COMPARISON: [facility], CT, CT ABDOMEN PELVIS W CON, 09/11/2023, 15:45. FINDINGS: Uterus: Uterus is anteverted and normal in size at 9.0 x 5.3 x 5.0 cm. The myometrium is homogeneous. The endometrium measures 4.6 mm combined thickness. Endometrium is somewhat heterogeneous with indistinct junctional zone. There is trace amount of fluid within the endometrial cavity. Ovaries: The right ovary measures 3.9 x 2.5 x 1.3 cm, with a calculated ovarian volume of 6.6 cc. The left ovary measures 2.6 x 1.2 x 1.4 cm, with a calculated ovarian volume of 2.1 cc. The ovaries have a normal sonographic appearance. Less than 12 follicles can be seen in each ovary. No adnexal masses are seen. There is positive arterial and venous flow to right ovary on Doppler ultrasound. Cannot document flow in left ovary on Doppler ultrasound. Other: No pathologic free abdominal or pelvic fluid. Incidentally noted is 114 cc postvoid residual. Ureteral jets were not visualized. IMPRESSION: 1. Endometrium is somewhat heterogeneous with indistinct junctional zone, suggesting adenomyosis. Consider gynecological MRI if clinical symptoms persist. 2. Trace amount of fluid within the endometrium. 3. Although ovaries are normal in echotexture. Unable to document arterial or venous flow on Doppler ultrasound to the left ovary. Cannot rule out ovarian torsion. Recommend clinical correlation and follow-up imaging if clinically indicated. 4. No free fluid in pelvis. We strive to produce accurate, complete, and clear reports of imaging services. To assist us in improving patient care, this report was composed using standard report templates and voice recognition software. Therefore, it may contain abnormal punctuation, insertions and/or omissions. Occasional wrong-word or sound-alike substitutions may occur. Though we review the report and make efforts to correct it, we do recommend that the report be read carefully in proper context to recognize any text inaccuracies. Dictated by: Nicol Whelan M.D. on 09/11/2023 at 16:29 Approved by: Nicol Whelan M.D. on 09/11/2023 at 16:45
[2023-09-11] MEDS: KETOROLAC 30 MG/ML VIAL 15 MG IV (14:03)
[2023-09-11] MEDS: HYDROMORPHONE 0.5 MG INJ IV (14:03)
[2023-09-11 14:25] LABS: Add Manual Diff / Slide Review NO; Basophils Absolute Auto 0 /uL (0-100); Basophils Percent Auto 0.3 % (0-2); Eosinophils Absolute Auto 0 /uL (0-450); Eosinophils Percent Auto 0.1 % (2-4); Hemoglobin 12.7 g/dL (12.0-16.0); Lymphocytes Absolute Auto 2300 /uL (1100-4500); Lymphocytes Percent Auto 14.6 % (25-40); Mean Corpuscular HGB Conc 33.4 % (30-36); Mean Corpuscular Hemoglobin 28.3 PG (26-34); Mean Corpuscular Volume 84.7 fL (80-100); Monocytes Absolute Auto 1000 /uL (0-900); Monocytes Percent Auto 6.1 % (3-14); Neutrophils Absolute Auto 12500 /uL (1500-7000); Neutrophils Percent Auto 78.9 % (50-75); Platelet Count 325 X10^3/uL (150-400); Red Blood Cell Count 4.48 X10^6/uL (4.0-5.2); Red Cell Distribution Width 13.4 % (11.6-14.8); White Blood Cell Count 15.8 X10^3/uL (4.5-11.0)
[2023-09-11 14:38] LABS: Alanine Aminotransferase 112 IU/L (<35); Albumin 4.3 g/dL (3.5-5.0); Albumin Globulin Ratio 1.1 (1.0-2.8); Alkaline Phosphatase 112 U/L (38-126); Aspartate Aminotransferase 61 IU/L (14-36); Blood Urea Nitrogen 11 mg/dL (7-17); Calcium 8.9 mg/dL (8.4-10.2); Carbon Dioxide 27 mmol/L (22-32); Chloride 106 mmol/L (98-107); Estimated Glomerular Filt Rate > 60 mL/min (>60); Globulin 3.9 g/dL (1.7-4.1); Glucose 97 mg/dL (70-100); HEMOLYSIS < 15 (0-50); Potassium 4.1 mmol/L (3.4-5.1); Sodium 138 mmol/L (137-145); Total Protein 8.2 g/dL (6.3-8.2)
--- NOTE | 2023-09-11 15:27 | DI.CT.S_ITS ---
PROCEDURE: CT ABDOMEN PELVIS W CON INDICATIONS: lower ab pain and pain in vagina TECHNIQUE: After the administration of intravenous contrast, axial sections acquired from the lung bases to the pubic symphysis. Coronal and sagittal reformats were performed. For radiation dose reduction, the following was used: automated exposure control, adjustment of mA and/or kV according to patient size. COMPARISON: [facility], , PELVIC COMPLETE, 09/11/2023, 14:56. FINDINGS: Image quality: Diagnostic. Lower Chest: No significant findings. ABDOMEN: Liver: No solid mass. Gallbladder: No radiopaque gallstones or wall thickening. Biliary ducts: No biliary dilation. Pancreas: No ductal dilation. Spleen: Size is within normal limits. Adrenal Glands: No adrenal nodules. Kidneys and Ureters: No hydronephrosis. No solid mass. No complex renal cystic lesion which requires follow up. Stomach and Bowel: Normal colonic caliber, without significant wall thickening. Appendix is mildly enlarged measuring 7.5 cm in diameter (normal value equal or less than 7 mm). There is subtle stranding. A tiny air collection is present within the appendiceal lumen. Peritoneum: No abnormal intraperitoneal fluid. No free air. Ventral Wall: No significant ventral hernia. Abdominal Nodes: No retroperitoneal or mesenteric adenopathy by size criteria. Vessels: Aorta and inferior vena cava are normal in size. PELVIS: Pelvic Organs: Uterus is grossly normal. There is a corpus luteal cyst in the right ovary measuring 1.3 cm. Left ovary is unremarkable.. Bladder: No bladder wall thickening, accounting for underdistention. Pelvic Nodes: No enlarged lymph nodes. Miscellaneous: No inguinal hernias are seen. Bones: No aggressive osseous abnormality. IMPRESSION: 1. Appendix is slightly enlarged measuring 7.5 cm in diameter. There is subtle stranding around the appendix. The finding could represent early acute appendicitis. There is, however, small amount of air collection within the appendiceal lumen. Recommend clinical correlation for early acute appendicitis. 2. A small corpus luteal cyst in the right ovary. 3. No free fluid in pelvis. Dictated by: Nicol Whelan M.D. on 09/11/2023 at 16:02 Approved by: Nicol Whelan M.D. on 09/11/2023 at 16:10
[2023-09-11 16:42] LABS: Urine N gonorrhoeae NOT DETECTED
[2023-09-11 16:43] LABS: Urine Chlamydia NOT DETECTED
[2023-09-11 16:45] LABS: Appearance Urine UA CLEAR; Bilirubin Urine UA NEGATIVE (NEGATIVE); Color Urine UA YELLOW; Glucose Urine UA NEGATIVE (Negative); Ketones Urine UA NEGATIVE (NEGATIVE); Leukocyte Esterase Urine UA TRACE (NEGATIVE); Nitrite Urine UA NEGATIVE (Negative); Occult Blood Urine UA NEGATIVE (Negative); Protein Urine UA TRACE (Negative); Specific Gravity Urine UA 1.025 (1.000-1.035); Urobilinogen Urine UA 0.2 E.U./dL (0.2)
[2023-09-11 16:55] LABS: Bacteria Urine Few (2-10); Culture Indicated Urine Specimen Cultured; Mucus Urine 2+ (Negative); RBC Urine 0-1/HPF (0-5/HPF); Squamous Epithelial Cell Urine 1-5 /HPF (0-5/HPF); Urine Volume 10mL (spun); WBC Urine 1-5/HPF (0-5/HPF)
[2023-09-11] MEDS: metroNIDAZOLE 500 MG TABLET PO (18:00)
[2023-09-11] MEDS: levoFLOXacin 250 MG TABLET 750 MG PO (18:00)
[2023-09-11] MEDS: HYDROCODONE/ACET 5/325 TABLET 1 TAB PO (18:05)
== END 2023-09-11 18:11 | disposition home or self-care (01) ==
PROVIDERS: Emergency Provider Emergency Medicine; PCP Internal Medicine
DX: K61.1 Rectal abscess (principal); O90.89 Other complications of the puerperium, not elsewhere classified
CPT/HCPCS: 74177; 76830; 76856; 80053; 81001; 85025; 87070; 87077; 87086; 87205; 87210; 87491; 87591; 96374; 96375; 99284; J1170; J1885; J2270; Q9967

== ENCOUNTER 2023-09-13 23:09 | Inpatient (IN) | payer OTHER, SELFPAY ==
[2023-09-13 23:18] VITALS: PULSE 126; O2SAT 100
[2023-09-13 23:19] VITALS: BP 103/60; PULSE 155; O2SAT 99
[2023-09-13 23:21] VITALS: BP 103/60; PULSE 148; RESP 22; TEMP 37.2; O2SAT 100; BMI 27.5
[2023-09-13 23:25] VITALS: BP 96/63; PULSE 123; RESP 16; O2SAT 99
[2023-09-13 23:30] VITALS: BP 102/57; PULSE 122; RESP 14; O2SAT 99
[2023-09-13] MEDS: SODIUM CHLORIDE 0.9% 1,000 ML 1000 ML IV (23:30)
--- NOTE | 2023-09-13 23:37 | ED.RECABL ---
HPI - Recheck/Abnormal Lab/Rx General Chief Complaint: Recheck/Abnormal Lab/Rx Stated Complaint: Rectum PAIN Time Seen by Provider: 09/13/23 23:14 Source: patient Mode of arrival: Wheelchair History of Present Illness HPI narrative: 32-year-old female presents for rectal pain that is worsening. Patient has had issues with abscesses following her last over 6 months ago. She was seen on 09/11/2023 for pelvic/vaginal/rectal pain and was diagnosed with bilateral perianal abscesses, left measuring 2.2 x 1.7 cm and right measuring 1.2 x 2.0 cm. General surgery and OBGYN services were consulted who recommended outpatient follow up and antibiotics. Patient states she has been compliant with her antibiotics but her pain is worsening and becoming less and less tolerable. Related Data Previous Rx's Medication Instructions Recorded metoclopramide HCl 10 mg tablet 10 mg PO Q6H PRN nausea and 08/07/22 (Reglan) vomiting #20 tabs metoclopramide HCl 10 mg tablet 10 mg PO Q6H PRN nausea and 08/07/22 (Reglan) vomiting #30 tabs hydrocodone 5 mg-acetaminophen 325 1 tab PO Q6H PRN pain #10 tabs 09/11/23 mg tablet levofloxacin 750 mg tablet 750 mg PO DAILY 7 days #7 tabs 09/11/23 metronidazole 500 mg tablet 500 mg PO Q8H 7 days #21 tabs 09/11/23 Allergies Allergy/AdvReac Type Severity Reaction Status Date / Time No Known Drug Allergies Allergy Verified 09/13/23 23:21 Review of Systems Review of Systems Narrative: Negative except as noted above Patient History Medical History History of gestational diabetes Episiotomy pain Gestational diabetes mellitus (GDM) Kidney stones (~2006) Surgical History History of female sterilization History of delivery H/O tooth extraction (~2012) Family History Mother No problems noted. Father History of heart artery stent History of open heart surgery Diabetes mellitus Pneumonia Grandmother Arthritis Grandfather No problems noted. Grandmother No problems noted. Grandfather Old age Family/Other Diabetes mellitus History of open heart surgery Brother No problems noted. Sister No problems noted. Social History marital status: number of children: 1 household members: spouse and children lives independently: Yes caregiver/support person: Yes housing: apartment pets and animals: No education level: college occupational status: unemployed and previously employed current occupational exposures/hazards: No special kayla needs: No travel history: over 6 months ago seatbelt use: always water heater temp set < 120 deg: Yes working smoke detector in home: Yes fire extinguisher in home: Yes carbon monox detector in home: Yes firearms in home: Yes do you feel safe at home: Yes Smoking Status: Never smoker second hand exposure: No alcohol intake: never substance use type: does not use during the past year weight has: other well-balanced diet: daily or most days daily servings fruits/ve or more times/day caffeine: No Type(s) of exercise: walking frequency: daily Smoking Status: Never smoker alcohol intake frequency: other Substance Use Type: does not use Exam Initial Vital Signs Initial Vital Signs: Vital Signs Pulse Rate 126 H 09/13/23 23:18 Pulse Oximetry 100 09/13/23 23:18 Const: Awake, alert, uncomfortable, nontoxic appearing Cardiac: Tachycardia, regular rhythm RESP: unlabored, clear bilaterally, no wheezing GI: Soft, nontender, nondistended, no rebound, no guarding Rectal: Shape Hand present, severe tenderness bilateral perirectal Skin: Warm, Dry, intact, no rashes Neuro: AO x3, CN II-XII grossly intact, moves all extremities Course Orders Ordered: ED Orders 09/13/23 23:30 CBC Auto Diff [Complete Blood Count AUTO DIFF] Stat CMP [Comprehensive Metabolic Panel] Stat Lactate (Lactic Acid) Stat 09/13/23 23:51 Blood Culture Stat 09/14/23 00:11 CT pelvis w con Stat 09/14/23 01:43 Consult to General Surgery Stat Metronidazole (Flagyl) 500 mg in 100 mls @ 100 mls/hr IV NOW ONE Stop: 09/14/23 02:24 Sodium Chloride (Normal Saline 0.9%) 1,000 mls @ 1,000 mls/hr IV BOLUS ONE Stop: 09/14/23 02:50 Last Admin: 09/14/23 01:52 Dose: 1,000 mls/hr Discontinued Medications Hydromorphone HCl (Hydromorphone 1 Mg Inj) 1 mg IV NOW ONE Stop: 09/14/23 01:39 Sodium Chloride (Normal Saline 0.9%) 1,000 mls @ 1,000 mls/hr IV BOLUS ONE Stop: 09/14/23 01:11 Last Infusion: 09/14/23 00:23 Dose: Infused Documented By: Admin: 09/13/23 23:30 Dose: 1,000 mls/hr Documented By: JACK Ceftriaxone Sodium 2,000 mg/ (Sodium Chloride) 100 mls @ 200 mls/hr IV NOW ONE Stop: 09/14/23 01:26 Last Admin: 09/14/23 01:32 Dose: 200 mls/hr Documented By: Ketorolac Tromethamine (Ketorolac 30 Mg/Ml Vial) 15 mg IV NOW ONE Stop: 09/14/23 00:12 Last Admin: 09/14/23 00:18 Dose: 15 mg Documented By: JACK Morphine Sulfate (Morphine 4 Mg/Ml Inj) 4 mg IV NOW ONE Stop: 09/13/23 23:34 Last Admin: 09/13/23 23:43 Dose: 4 mg Documented By: Ondansetron HCl (Ondansetron 4 Mg/2 Ml Inj) 4 mg IV NOW ONE Stop: 09/14/23 01:39 Last Admin: 09/14/23 01:43 Dose: 4 mg Vital Signs Vital signs: Vital Signs - 8 hr 09/13/23 23:18 09/13/23 23:19 09/13/23 23:19 Temperature Pulse Rate 126 H 155 H Respiratory Rate Blood Pressure 103/60 Pulse Oximetry 100 99 Oxygen Delivery Method 09/13/23 23:21 09/13/23 23:25 09/13/23 23:25 Temperature 99 F Pulse Rate 148 H 123 H Respiratory Rate 22 16 Blood Pressure 103/60 96/63 Pulse Oximetry 100 99 Oxygen Delivery Method Room Air 09/13/23 23:30 09/13/23 23:30 09/14/23 00:00 Temperature Pulse Rate 122 H Respiratory Rate 14 Blood Pressure 102/57 L 101/60 Pulse Oximetry 99 Oxygen Delivery Method 09/14/23 00:00 09/14/23 00:30 09/14/23 00:30 Temperature Pulse Rate 102 H 104 H Respiratory Rate 13 23 Blood Pressure 101/55 L Pulse Oximetry 99 99 Oxygen Delivery Method 09/14/23 01:00 09/14/23 01:02 09/14/23 01:02 Temperature Pulse Rate 103 H 110 H Respiratory Rate Blood Pressure 104/53 L Pulse Oximetry 100 100 Oxygen Delivery Method 09/14/23 01:40 09/14/23 01:41 09/14/23 01:41 Temperature Pulse Rate 106 H 105 H Respiratory Rate Blood Pressure 95/57 L Pulse Oximetry 100 100 Oxygen Delivery Method MDM - Recheck/Abnormal Lab/Rx Differential Diagnosis Differential diagnosis: Likely encounter for medication refill, encounter for wound recheck and encounter for recheck of burn Lab Data 09/13/23 23:30 09/13/23 23:30 Labs: Lab Results 09/13/23 Range/Units 23:30 WBC 13.4 H (4.5-11.0) X10^3/uL RBC 4.31 (4.0-5.2) X10^6/uL Hgb 12.2 (12.0-16.0) g/dL Hct 36.7 (36-46) % MCV 85.3 (80-100) fL MCH 28.3 (26-34) PG MCHC 33.2 (30-36) % RDW 13.3 (11.6-14.8) % Plt Count 359 (150-400) X10^3/uL Neut % (Auto) 79.6 H (50-75) % Lymph % (Auto) 12.4 L (25-40) % [place] % (Auto) 6.9 (3-14) % Eos % (Auto) 0.6 L (2-4) % Baso % (Auto) 0.5 (0-2) % Neut # (Auto) 71923 H (9611-3732) /uL Lymph # (Auto) 1700 (3748-9638) /uL [place] # (Auto) 900 (0-900) /uL Eos # (Auto) 100 (0-450) /uL Baso # (Auto) 100 (0-100) /uL Sodium 139 (137-145) mmol/L Potassium 3.2 L (3.4-5.1) mmol/L Chloride 106 (98-107) mmol/L Carbon Dioxide 25 (22-32) mmol/L BUN 14 (7-17) mg/dL Creatinine 0.48 L (0.52-1.04) mg/dL Estimated GFR > 60 (>60) mL/min BUN/Creatinine Ratio 29.2 H (6-22) Glucose 91 (70-100) mg/dL Lactate 1.0 (0.7-2.1) mmol/L Calcium 9.1 (8.4-10.2) mg/dL Total Bilirubin 0.5 (0.2-1.3) mg/dL AST 45 H (14-36) IU/L ALT 70 H (<35) IU/L Alkaline Phosphatase 130 H (38-126) U/L Total Protein 7.9 (6.3-8.2) g/dL Albumin 4.0 (3.5-5.0) g/dL Globulin 3.9 (1.7-4.1) g/dL Albumin/Globulin Ratio 1.0 (1.0-2.8) Imaging Data CT scan - abdomen/pelvis: Radiologist's Impression: PROCEDURE: CT PELVIS W CON INDICATIONS: PERIRECTAL ABSCESS/NOT IMPROVING TECHNIQUE: After the administration of intravenous contrast, 5 mm thick sections acquired from the iliac crests to the symphysis. 5 mm coronal and sagittal reformats were acquired. For radiation dose reduction, the following was used: automated exposure control, adjustment of mA and/or kV according to patient size. COMPARISON: [facility], CT, CT ABDOMEN PELVIS W CON, 09/11/2023, 15:45. FINDINGS: Image quality: Diagnostic. PELVIS: Peritoneum and Bowel: Bowel loops demonstrate normal wall thickness and caliber. No free fluid or air. Pelvic Organs: No pelvic mass. Bladder: Normal wall thickness, accounting for underdistension. No perivesicular fat stranding. Pelvic Nodes: No enlarged lymph nodes. Miscellaneous: The recent prior CT scanning 09/11/23 had identified bilateral perianal fluid collections which have increased in size. On the right the abscess had measured 1.2 x 2.0 cm and now measures 2.4 x 5.1 cm. On the left the fluid collection had measured 2.2 x 1.7 cm and now measures 2 point 6 x 4.7 cm. Bones: No aggressive osseous abnormality. IMPRESSION: Interval significant increase in size of the bilateral perianal abscess collections previously identified 3 days ago. Dictated by: Erik Lares M.D. on 09/14/2023 at 1:25 Approved by: Erik Lares M.D. on 09/14/2023 at 1:30 MDM Narrative Medical decision making narrative: Persistent and worsening rectal pain despite antibiotic compliance. Patient is unable to tolerate even light tough to her perianal region and an inspection of her rectum could not be performed without receiving IV pain medications. We will repeat labs and CT imaging at this time. Patient's previous CT scan noted questionable abnormalities of the appendix, patient adamantly denies any abdominal pain, stating it was all isolated to her rectum. Patient is tachycardic with slightly low blood pressure, however she was also in pain and quite anxious about her abscesses. IV pain medications ordered and IV fluids ordered. Laboratory work shows improved WBC count, 13.4 today versus 15.8 previously, hemoglobin 12.2, sodium 139, potassium 3.2, creatinine 0.48, lactic acid 1.0. CT scan shows interval significant increase in size of the bilateral perianal abscesses. Right-sided abscess now measures 2.4 x 5.1 cm and the left-sided fluid collection now measures 2.6 x 4.7 cm. Discussed case with on-call surgeon Dr. Max, who will evaluate the patient in the morning for possible evaluation under anesthesia. Rocephin and flagyl ordered for abscess coverage. Patient to be admitted to hospitalist service. Discharge Plan Departure Patient Disposition: Admitted as Observation Clinical Impression: Abscess, perianal, Failure of outpatient treatment
[2023-09-13 23:43] LABS: Add Manual Diff / Slide Review NO; Basophils Absolute Auto 100 /uL (0-100); Basophils Percent Auto 0.5 % (0-2); Eosinophils Absolute Auto 100 /uL (0-450); Eosinophils Percent Auto 0.6 % (2-4); Hematocrit 36.7 % (36-46); Hemoglobin 12.2 g/dL (12.0-16.0); Lymphocytes Absolute Auto 1700 /uL (1100-4500); Lymphocytes Percent Auto 12.4 % (25-40); Mean Corpuscular HGB Conc 33.2 % (30-36); Mean Corpuscular Hemoglobin 28.3 PG (26-34); Mean Corpuscular Volume 85.3 fL (80-100); Monocytes Absolute Auto 900 /uL (0-900); Monocytes Percent Auto 6.9 % (3-14); Neutrophils Absolute Auto 10700 /uL (1500-7000); Neutrophils Percent Auto 79.6 % (50-75); Platelet Count 359 X10^3/uL (150-400); Red Blood Cell Count 4.31 X10^6/uL (4.0-5.2); Red Cell Distribution Width 13.3 % (11.6-14.8); White Blood Cell Count 13.4 X10^3/uL (4.5-11.0)
[2023-09-13] MEDS: MORPHINE 4 MG/ML INJ IV (23:43)
[2023-09-14] VITALS (23 sets, daily range): BP systolic 92–118; BP diastolic 52–74; PULSE 76–110; RESP 13–23; TEMP 35.9–36.7; O2SAT 95–100; BMI 27.5
[2023-09-14 00:06] LABS: Alanine Aminotransferase 70 IU/L (<35); Alkaline Phosphatase 130 U/L (38-126); Aspartate Aminotransferase 45 IU/L (14-36); BUN Creatinine Ratio 29.2 (6-22); Bilirubin Total 0.5 mg/dL (0.2-1.3); Blood Urea Nitrogen 14 mg/dL (7-17); Calcium 9.1 mg/dL (8.4-10.2); Carbon Dioxide 25 mmol/L (22-32); Chloride 106 mmol/L (98-107); Estimated Glomerular Filt Rate > 60 mL/min (>60); Globulin 3.9 g/dL (1.7-4.1); Glucose 91 mg/dL (70-100); HEMOLYSIS < 15 (0-50); Potassium 3.2 mmol/L (3.4-5.1); Sodium 139 mmol/L (137-145); Total Protein 7.9 g/dL (6.3-8.2)
--- NOTE | 2023-09-14 00:11 | DI.CT.S_ITS ---
PROCEDURE: CT PELVIS W CON INDICATIONS: PERIRECTAL ABSCESS/NOT IMPROVING TECHNIQUE: After the administration of intravenous contrast, 5 mm thick sections acquired from the iliac crests to the symphysis. 5 mm coronal and sagittal reformats were acquired. For radiation dose reduction, the following was used: automated exposure control, adjustment of mA and/or kV according to patient size. COMPARISON: [facility], CT, CT ABDOMEN PELVIS W CON, 09/11/2023, 15:45. FINDINGS: Image quality: Diagnostic. PELVIS: Peritoneum and Bowel: Bowel loops demonstrate normal wall thickness and caliber. No free fluid or air. Pelvic Organs: No pelvic mass. Bladder: Normal wall thickness, accounting for underdistension. No perivesicular fat stranding. Pelvic Nodes: No enlarged lymph nodes. Miscellaneous: The recent prior CT scanning 09/11/23 had identified bilateral perianal fluid collections which have increased in size. On the right the abscess had measured 1.2 x 2.0 cm and now measures 2.4 x 5.1 cm. On the left the fluid collection had measured 2.2 x 1.7 cm and now measures 2 point 6 x 4.7 cm. Bones: No aggressive osseous abnormality. IMPRESSION: Interval significant increase in size of the bilateral perianal abscess collections previously identified 3 days ago. Dictated by: Erik Lares M.D. on 09/14/2023 at 1:25 Approved by: Erik Lares M.D. on 09/14/2023 at 1:30
[2023-09-14] MEDS: KETOROLAC 30 MG/ML VIAL 15 MG IV (00:18)
[2023-09-14] MEDS: cefTRIAXone 2,000 MG in SODIUM CHLORIDE 0.9% 100 ML 200 MG IV (01:32)
[2023-09-14] MEDS: ONDANSETRON 4 MG/2 ML INJ IV ×3 (01:43→15:31)
[2023-09-14] MEDS: SODIUM CHLORIDE 0.9% 1,000 ML 1000 ML IV (01:52)
[2023-09-14] MEDS: metroNIDAZOLE 500 MG/100 ML PIGGYBACK 100 MG IV (02:13)
[2023-09-14] MEDS: HYDROMORPHONE 1 MG INJ IV ×2 (02:20→13:07)
--- NOTE | 2023-09-14 02:59 | PM.HP.1 ---
History of Present Illness History of Present Illness Date Patient Seen: 09/14/23 Chief complaint: vaginal and rectal pain Narrative: 32 y/o with PMH of gestational DM and infection following episiotomy 2 years ago, seen initially in the ED on 09/10 with vaginal pain. Workup revealed b/l perianal abscesses and surgery and OBGYN consulted. Discharged home on Levaquin and Flagyl. Today presents with worsening pain, abscesses doubled in size, one on the Rt to 2X5 and one the Lt to 2x6 cm. Not septic but tachycardic and borderline hypotensive. Admitted for IV abx, to be seen by surgery this AM. [facility] Medical History History of gestational diabetes Episiotomy pain Gestational diabetes mellitus (GDM) Kidney stones (~2006) Surgical History History of female sterilization History of delivery H/O tooth extraction (~2012) Family History Mother No problems noted. Father History of heart artery stent History of open heart surgery Diabetes mellitus Pneumonia Grandmother Arthritis Grandfather No problems noted. Grandmother No problems noted. Grandfather Old age Family/Other Diabetes mellitus History of open heart surgery Brother No problems noted. Sister No problems noted. Social History marital status: number of children: 1 household members: spouse and children lives independently: Yes caregiver/support person: Yes housing: apartment pets and animals: No education level: college occupational status: unemployed and previously employed current occupational exposures/hazards: No special kayla needs: No travel history: over 6 months ago seatbelt use: always water heater temp set < 120 deg: Yes working smoke detector in home: Yes fire extinguisher in home: Yes carbon monox detector in home: Yes firearms in home: Yes do you feel safe at home: Yes Smoking Status: Never smoker second hand exposure: No alcohol intake: never substance use type: does not use during the past year weight has: other well-balanced diet: daily or most days daily servings fruits/ve or more times/day caffeine: No Type(s) of exercise: walking frequency: daily Meds Home Medications and Allergies Home Medications Medication Instructions Recorded Confirmed Type levofloxacin 750 mg tablet 750 mg PO DAILY 7 days #7 tabs 09/11/23 09/14/23 Rx metronidazole 500 mg tablet 500 mg PO Q8H 7 days #21 tabs 09/11/23 09/14/23 Rx ibuprofen 600 mg tablet 600 mg PO Q6H PRN Pain (Scale 09/14/23 09/14/23 History Score 4-6) oxycodone 5 mg tablet 10 mg BID PRN Pain, Severe 09/14/23 09/14/23 History Allergies Allergy/AdvReac Type Severity Reaction Status Date / Time No Known Drug Allergies Allergy Verified 09/13/23 23:21 Review of Systems Constitutional Comments: w/o fever or chills Cardiovascular Comments: w/o palpitations Respiratory Comments: w/o shortness of breath Gastrointestinal Comments: perirectal tenderness Genitourinary Comments: resolved vaginal pain Exam Vital Signs (past 8 hours): - 09/13/23 23:18 09/13/23 23:19 09/13/23 23:19 Temperature Pulse Rate 126 H 155 H Respiratory Rate Blood Pressure 103/60 Pulse Oximetry 100 99 Oxygen Delivery Method 09/13/23 23:21 09/13/23 23:25 09/13/23 23:25 Temperature 99 F Pulse Rate 148 H 123 H Respiratory Rate 22 16 Blood Pressure 103/60 96/63 Pulse Oximetry 100 99 Oxygen Delivery Method Room Air 09/13/23 23:30 09/13/23 23:30 09/14/23 00:00 Temperature Pulse Rate 122 H Respiratory Rate 14 Blood Pressure 102/57 L 101/60 Pulse Oximetry 99 Oxygen Delivery Method 09/14/23 00:00 09/14/23 00:30 09/14/23 00:30 Temperature Pulse Rate 102 H 104 H Respiratory Rate 13 23 Blood Pressure 101/55 L Pulse Oximetry 99 99 Oxygen Delivery Method 09/14/23 01:00 09/14/23 01:02 09/14/23 01:02 Temperature Pulse Rate 103 H 110 H Respiratory Rate Blood Pressure 104/53 L Pulse Oximetry 100 100 Oxygen Delivery Method 09/14/23 01:40 09/14/23 01:41 09/14/23 01:41 Temperature Pulse Rate 106 H 105 H Respiratory Rate Blood Pressure 95/57 L Pulse Oximetry 100 100 Oxygen Delivery Method 09/14/23 02:00 09/14/23 02:00 09/14/23 02:17 Temperature Pulse Rate 99 H Respiratory Rate Blood Pressure 96/54 L 96/57 L Pulse Oximetry 100 Oxygen Delivery Method 09/14/23 02:17 09/14/23 02:30 09/14/23 02:30 Temperature Pulse Rate 98 H 97 H Respiratory Rate Blood Pressure 92/55 L Pulse Oximetry 100 99 Oxygen Delivery Method Oxygen Delivery Method Room Air Narrative Exam Narrative: In no distress, laying in bed, sleepy, tired Resp Other: normal respiratory effort Cardio Other: RRR GI Other: severe perineal tenderness Neuro Other: w/o deficits Psych Other: flat affect, lucid Objective Labs 09/14/23 04:06 09/14/23 04:06 Labs: Laboratory Results - last 24 hr 09/13/23 23:30 WBC 13.4 H RBC 4.31 Hgb 12.2 Hct 36.7 MCV 85.3 MCH 28.3 MCHC 33.2 RDW 13.3 Plt Count 359 Neut % (Auto) 79.6 H Lymph % (Auto) 12.4 L [place] % (Auto) 6.9 Eos % (Auto) 0.6 L Baso % (Auto) 0.5 Neut # (Auto) 38843 H Lymph # (Auto) 1700 [place] # (Auto) 900 Eos # (Auto) 100 Baso # (Auto) 100 Sodium 139 Potassium 3.2 L Chloride 106 Carbon Dioxide 25 BUN 14 Creatinine 0.48 L Estimated GFR > 60 BUN/Creatinine Ratio 29.2 H Glucose 91 Lactate 1.0 Calcium 9.1 Total Bilirubin 0.5 AST 45 H ALT 70 H Alkaline Phosphatase 130 H Total Protein 7.9 Albumin 4.0 Globulin 3.9 Albumin/Globulin Ratio 1.0 Assessment & Plan Assessment and plan (1) Abscess, perianal: Status: Acute Assessment & Plan narrative: Perianal Abscesses - failed outpatient PO Flagyl / Levaquin - admitted to telemetry with tachycardia and hypotension - NPO, IVFs, surgery evaluating this morning - she had PO Flagyl and Levaquin for the last 2-3 days and then IV Flagyl and Rocephin tonight - I will deescalate to [place], follow cultures DVT prophylaxis - SCDs
[2023-09-14] MEDS: PIPERACILLIN/TAZO 4.5 GM in SODIUM CHLORIDE 0.9% 100 ML IV (04:32)
--- NOTE | 2023-09-14 04:36 | PC.NURSE ---
Patient request some items to be locked in the safe. This MEDICAL ILLUSTRATOR and MEDICAL ILLUSTRATOR Micaela Mccallum both witness and signed paperwork. [place] paper given to patient, yellow paper with tag in patient chart and white paper sealed in bag and given to cold working supervisor Kat
[2023-09-14 04:43] LABS: Add Manual Diff / Slide Review NO; Basophils Absolute Auto 0 /uL (0-100); Basophils Percent Auto 0.2 % (0-2); Eosinophils Absolute Auto 100 /uL (0-450); Eosinophils Percent Auto 0.6 % (2-4); Hematocrit 30.2 % (36-46); Hemoglobin 10.1 g/dL (12.0-16.0); Lymphocytes Absolute Auto 2400 /uL (1100-4500); Lymphocytes Percent Auto 18.2 % (25-40); Mean Corpuscular HGB Conc 33.4 % (30-36); Mean Corpuscular Hemoglobin 28.6 PG (26-34); Mean Corpuscular Volume 85.6 fL (80-100); Monocytes Absolute Auto 1100 /uL (0-900); Monocytes Percent Auto 8.5 % (3-14); Neutrophils Absolute Auto 9700 /uL (1500-7000); Neutrophils Percent Auto 72.5 % (50-75); Platelet Count 294 X10^3/uL (150-400); Red Blood Cell Count 3.53 X10^6/uL (4.0-5.2); Red Cell Distribution Width 13.3 % (11.6-14.8); White Blood Cell Count 13.4 X10^3/uL (4.5-11.0)
[2023-09-14] MEDS: HYDROMORPHONE 0.5 MG INJ IV ×2 (04:47→10:16)
[2023-09-14] MEDS: KCL 20 MEQ IN NS 1,000 ML 100 MEQ IV (04:52)
[2023-09-14 05:01] LABS: BUN Creatinine Ratio 20.9 (6-22); Blood Urea Nitrogen 9 mg/dL (7-17); Calcium 7.3 mg/dL (8.4-10.2); Carbon Dioxide 22 mmol/L (22-32); Chloride 111 mmol/L (98-107); Estimated Glomerular Filt Rate > 60 mL/min (>60); Glucose 98 mg/dL (70-100); HEMOLYSIS < 15 (0-50); Potassium 3.3 mmol/L (3.4-5.1); Sodium 139 mmol/L (137-145)
--- NOTE | 2023-09-14 07:35 | P.HP_ITS ---
History of Present Illness History of Present Illness Date Patient Seen: 09/14/23 Chief complaint: vaginal and rectal pain Narrative: From night doctor: 32 y/o with PMH of gestational DM and infection following episiotomy 2 years ago , seen initially in the ED on 09/10 with vaginal pain. Workup revealed b/l perianal abscesses and surgery and OBGYN consulted. Discharged home on Levaquin and Flagyl. Today presents with worsening pain, abscesses doubled in size, one on the Rt to 2X5 and one the Lt to 2x6 cm. Not septic but tachycardic and borderline hypotensive. Admitted for IV abx, to be seen by surgery this AM. New information: She has having a lot of pain. Her oral pain medications are helping to a small degree. There has been no spontaneous drainage. I did discuss the case with surgeon, he will perform incision and drainage this afternoon. She denies any fevers, or emesis. [facility] Medical History History of gestational diabetes Episiotomy pain Gestational diabetes mellitus (GDM) Kidney stones (~2006) Surgical History History of female sterilization History of delivery H/O tooth extraction (~2012) Family History Mother No problems noted. Father History of heart artery stent History of open heart surgery Diabetes mellitus Pneumonia Grandmother Arthritis Grandfather No problems noted. Grandmother No problems noted. Grandfather Old age Family/Other Diabetes mellitus History of open heart surgery Brother No problems noted. Sister No problems noted. Social History marital status: number of children: 1 household members: spouse and children lives independently: Yes caregiver/support person: Yes housing: apartment pets and animals: No education level: college occupational status: unemployed and previously employed current occupational exposures/hazards: No special kayla needs: No travel history: over 6 months ago seatbelt use: always water heater temp set < 120 deg: Yes working smoke detector in home: Yes fire extinguisher in home: Yes carbon monox detector in home: Yes firearms in home: Yes do you feel safe at home: Yes Smoking Status: Never smoker second hand exposure: No alcohol intake: never substance use type: does not use during the past year weight has: other well-balanced diet: daily or most days daily servings fruits/ve or more times/day caffeine: No Type(s) of exercise: walking frequency: daily Meds Home Medications and Allergies Home Medications Medication Instructions Recorded Confirmed Type levofloxacin 750 mg tablet 750 mg PO DAILY 7 days #7 tabs 09/11/23 09/14/23 Rx metronidazole 500 mg tablet 500 mg PO Q8H 7 days #21 tabs 09/11/23 09/14/23 Rx ibuprofen 600 mg tablet 600 mg PO Q6H PRN Pain (Scale 09/14/23 09/14/23 History Score 4-6) oxycodone 5 mg tablet 10 mg BID PRN Pain, Severe 09/14/23 09/14/23 History Allergies Allergy/AdvReac Type Severity Reaction Status Date / Time No Known Drug Allergies Allergy Verified 09/13/23 23:21 Review of Systems Review of Systems Narrative: All else reviewed and otherwise unremarkable except as noted in the history and physical. Exam Vital Signs (past 8 hours): - 09/14/23 00:00 09/14/23 00:00 09/14/23 00:30 Temperature Pulse Rate 102 H Respiratory Rate 13 Blood Pressure 101/60 101/55 L Pulse Oximetry 99 Oxygen Flow Rate 09/14/23 00:30 09/14/23 01:00 09/14/23 01:02 Temperature Pulse Rate 104 H 103 H 110 H Respiratory Rate 23 Blood Pressure Pulse Oximetry 99 100 100 Oxygen Flow Rate 09/14/23 01:02 09/14/23 01:40 09/14/23 01:41 Temperature Pulse Rate 106 H Respiratory Rate Blood Pressure 104/53 L 95/57 L Pulse Oximetry 100 Oxygen Flow Rate 09/14/23 01:41 09/14/23 02:00 09/14/23 02:00 Temperature Pulse Rate 105 H 99 H Respiratory Rate Blood Pressure 96/54 L Pulse Oximetry 100 100 Oxygen Flow Rate 09/14/23 02:17 09/14/23 02:17 09/14/23 02:30 Temperature Pulse Rate 98 H Respiratory Rate Blood Pressure 96/57 L 92/55 L Pulse Oximetry 100 Oxygen Flow Rate 09/14/23 02:30 09/14/23 02:38 09/14/23 02:38 Temperature Pulse Rate 97 H 98 H Respiratory Rate Blood Pressure 95/52 L Pulse Oximetry 99 98 Oxygen Flow Rate 09/14/23 03:00 Temperature 98.1 F Pulse Rate 95 H Respiratory Rate 17 Blood Pressure 92/56 L Pulse Oximetry 99 Oxygen Flow Rate 0 Oxygen Delivery Method Room Air Oxygen Flow Rate 0 Narrative Exam Narrative: Uncomfortable, alert and oriented, fluent speech, anxious. Normocephalic skull, EOMI, anicteric sclera, symmetric pupils. Oropharynx unremarkable, no droop. Neck supple, midline trachea, no adenopathy. Lungs clear, normal rate and effort. Heart regular, no murmur gallop or rub. Abdomen is soft, non distended and non tender. Extremities are free of edema. Skin is free of rash or lesions. Joints are not swollen or deformed. Judgment appears to be normal. Objective Labs 09/14/23 04:06 09/14/23 04:06 Labs: Laboratory Results - last 24 hr 09/13/23 09/14/23 23:30 04:06 WBC 13.4 H 13.4 H RBC 4.31 3.53 L Hgb 12.2 10.1 L Hct 36.7 30.2 L MCV 85.3 85.6 MCH 28.3 28.6 MCHC 33.2 33.4 RDW 13.3 13.3 Plt Count 359 294 Neut % (Auto) 79.6 H 72.5 Lymph % (Auto) 12.4 L 18.2 L [place] % (Auto) 6.9 8.5 Eos % (Auto) 0.6 L 0.6 L Baso % (Auto) 0.5 0.2 Neut # (Auto) 00664 H 9700 H Lymph # (Auto) 1700 2400 [place] # (Auto) 900 1100 H Eos # (Auto) 100 100 Baso # (Auto) 100 0 Sodium 139 139 Potassium 3.2 L 3.3 L Chloride 106 111 H Carbon Dioxide 25 22 BUN 14 9 Creatinine 0.48 L 0.43 L Estimated GFR > 60 > 60 BUN/Creatinine Ratio 29.2 H 20.9 Glucose 91 98 Lactate 1.0 Calcium 9.1 7.3 L Total Bilirubin 0.5 AST 45 H ALT 70 H Alkaline Phosphatase 130 H Total Protein 7.9 Albumin 4.0 Globulin 3.9 Albumin/Globulin Ratio 1.0 Assessment & Plan Assessment & Plan narrative: 1. Perianal Abscesses, present on admission and active, - failed outpatient PO Flagyl / Levaquin - admitted to telemetry with tachycardia and hypotension - NPO, IVFs, surgery we will perform incision and drainage this afternoon. - she had PO Flagyl and Levaquin for the last 2-3 days and then IV Flagyl and Rocephin tonight - I will deescalate to Zosyn, follow cultures -we will increase dosages of both oxycodone and Dilaudid. DVT prophylaxis - SCDs Time Spent With Patient Time with patient: 30 to 49 minutes with 50% spent counseling/coordinating care Quality MIPS - Admit I confirm the patient?s Advance Care Plan is present, Code status is documented, Surrogate decision maker is in patient?s record [If Yes, STOP here]: Yes The patient?s Advance Care plan is not present because I confirmed today that the patient does not wish or was not able to name a surrogate decision maker or provide an Advance Care Plan.: Yes [facility] - Meds 'Current medications' to include all prescriptions, [id number] products, herbals, cannabis/cannabidiol products, and vitamin/mineral/dietary (nutritional) supplements. I have utilized all available resources to obtain, update, or review the patient?s current medications. [If Yes, STOP here]: Yes
[2023-09-14] MEDS: OXYCODONE IR 5 MG TABLET PO (08:23)
--- NOTE | 2023-09-14 09:16 | PC.NURSE ---
Addendum entered by Marielle Judge R.N. 09/14/23 16:41: Restarted potassium IV at the ordered rate and patient complained of severe burning. Stopped IV infusion. Assessed IV, IV patent and in place, blood return on IV. Called pharmacy and pharmacy said ok to stop potassium and not administer the final half of bag. Addendum entered by Marielle Judge R.N. 09/14/23 12:52: It was reported to the primary RN by another RN that pt was in severe pain. RN brought in dilaudid for pt's pain per rating scale that was reported to RN. pt refused dilaudid at that time. RN assisted pt with an ice pack and non-pharmacological measures to ease pain. Original Note: Contacted pharmacy regarding potassium replacement to confirm it was safe to run all meds together and that pt could receive 60mEq over time. Pharmacy verfied it was okay.
[2023-09-14] MEDS: PIPERACILLIN/TAZO 3.375 GM in SODIUM CHLORIDE 0.9% 100 ML IV (09:23)
[2023-09-14] MEDS: POTASSIUM CHLORIDE IN WATER 10 MEQ/100 ML PIGGYBACK 80 MEQ IV ×4 (09:25→14:33)
[2023-09-14] MEDS: OXYCODONE IR 5 MG TABLET 10 MG PO (10:56)
[2023-09-14] MEDS: ACETAMINOPHEN 325 MG TABLET 650 MG PO (10:57)
--- NOTE | 2023-09-14 12:08 | P.CONS_ITS ---
History of Present Illness Consult details Date Patient Seen: 09/14/23 Time Patient Seen: 12:09 Chief complaint: vaginal and rectal pain Narrative: 32-year-old woman with a history of complicated vaginal delivery admitted to [facility] with perirectal abscess. She was seen in the emergency room several days ago and treated with oral antibiotics however she has failed to improve. She re-presented last night with severe pain and imaging demonstrating to rectal abscesses x2 approximally 4 cm each. No history of inflammatory bowel disease. No urinary or fecal incontinence. Meds Home Medications and Allergies Home Medications Medication Instructions Recorded Confirmed Type levofloxacin 750 mg tablet 750 mg PO DAILY 7 days #7 tabs 09/11/23 09/14/23 Rx metronidazole 500 mg tablet 500 mg PO Q8H 7 days #21 tabs 09/11/23 09/14/23 Rx ibuprofen 600 mg tablet 600 mg PO Q6H PRN Pain (Scale 09/14/23 09/14/23 History Score 4-6) oxycodone 5 mg tablet 10 mg BID PRN Pain, Severe 09/14/23 09/14/23 History Allergies Allergy/AdvReac Type Severity Reaction Status Date / Time No Known Drug Allergies Allergy Verified 09/13/23 23:21 Exam Vital Signs (past 8 hours): - 09/14/23 07:51 09/14/23 11:00 Temperature 97.3 F L 97.3 F L Pulse Rate 81 81 Respiratory Rate 16 16 Blood Pressure 106/59 L 98/60 Pulse Oximetry 97 100 Oxygen Flow Rate 0 0 Oxygen Delivery Method Room Air Oxygen Flow Rate 0 Narrative Exam Narrative: General adult woman alert oriented uncomfortable. Rectum unable to tolerate external examination despite IV pain medication. Objective Labs 09/14/23 04:06 09/14/23 04:06 Labs: Laboratory Results - last 24 hr 09/13/23 09/14/23 23:30 04:06 WBC 13.4 H 13.4 H RBC 4.31 3.53 L Hgb 12.2 10.1 L Hct 36.7 30.2 L MCV 85.3 85.6 MCH 28.3 28.6 MCHC 33.2 33.4 RDW 13.3 13.3 Plt Count 359 294 Neut % (Auto) 79.6 H 72.5 Lymph % (Auto) 12.4 L 18.2 L [place] % (Auto) 6.9 8.5 Eos % (Auto) 0.6 L 0.6 L Baso % (Auto) 0.5 0.2 Neut # (Auto) 31998 H 9700 H Lymph # (Auto) 1700 2400 [place] # (Auto) 900 1100 H Eos # (Auto) 100 100 Baso # (Auto) 100 0 Sodium 139 139 Potassium 3.2 L 3.3 L Chloride 106 111 H Carbon Dioxide 25 22 BUN 14 9 Creatinine 0.48 L 0.43 L Estimated GFR > 60 > 60 BUN/Creatinine Ratio 29.2 H 20.9 Glucose 91 98 Lactate 1.0 Calcium 9.1 7.3 L Total Bilirubin 0.5 AST 45 H ALT 70 H Alkaline Phosphatase 130 H Total Protein 7.9 Albumin 4.0 Globulin 3.9 Albumin/Globulin Ratio 1.0 PFSH Medical History History of gestational diabetes Episiotomy pain Gestational diabetes mellitus (GDM) Kidney stones (~2006) Surgical History History of female sterilization History of delivery H/O tooth extraction (~2012) Family History Mother No problems noted. Father History of heart artery stent History of open heart surgery Diabetes mellitus Pneumonia Grandmother Arthritis Grandfather No problems noted. Grandmother No problems noted. Grandfather Old age Family/Other Diabetes mellitus History of open heart surgery Brother No problems noted. Sister No problems noted. Social History marital status: number of children: 1 household members: spouse and children lives independently: Yes caregiver/support person: Yes housing: apartment pets and animals: No education level: college occupational status: unemployed and previously employed current occupational exposures/hazards: No special kayla needs: No travel history: over 6 months ago Safety seatbelt use: always water heater temp set < 120 deg: Yes working smoke detector in home: Yes fire extinguisher in home: Yes carbon monox detector in home: Yes firearms in home: Yes do you feel safe at home: Yes Tobacco & Substance Use Smoking Status: Never smoker second hand exposure: No alcohol intake: never substance use type: does not use Diet and Exercise during the past year weight has: other well-balanced diet: daily or most days daily servings fruits/ve or more times/day caffeine: No Type(s) of exercise: walking frequency: daily Assessment & Plan Assessment and plan (1) Abscess, perianal: Status: Acute Assessment & Plan narrative: 32-year-old woman admitted with perirectal abscess x2. Recommended we proceed with incision and drainage of rectal abscess under anesthesia. Overview of the operation discussed. Operative risks including but not limited to hemorrhage, infection, damage to surrounding structures, incontinence reviewed. Questions have been answered she is in agreement with this plan.
--- NOTE | 2023-09-14 14:28 | SUR.OPER ---
Lithotomy on padded OR bed, head on pillow, arms secured on padded arm boards at <90 degrees abduction. Legs secured in padded yellow fins stirrups.
[2023-09-14] MEDS: BUPIVACAINE 0.25% (PF) VIAL 30 ML INJ (14:34)
--- NOTE | 2023-09-14 14:51 | PM.OP.1 ---
Operative Date/Time/Diagnoses Date of procedure: 09/14/23 Time of procedure: 14:51 Pre-op diagnosis: Perianal abscess Post-op diagnosis: same Procedure & Clinicians Procedure: Incision and drainage of perianal abscess Same procedure as scheduled: Yes Indications: 32-year-old woman with a history of complicated vaginal delivery with episiotomy who has had recurrent perianal abscess. She has been at [facility] with a large of 4 cm perianal abscess Surgeon: Pedro Atwood Click Yes if Unassisted: Yes Anesthesia Type: General Operative Notes Findings: Primary abscesses involving the patient's right perianal / perineum area which tracked across the midline to the left hand side Specimen(s): other (Perianal abscess) Estimated Blood Loss (mL): 20 Procedure in detail: Patient was brought to the operating room placed supine on the table. Bilateral lower extremity compression devices were applied. General anesthesia was induced and she was intubated with an LMA. She was prepped and draped in sterile fashion. Time-out was performed. Rectal examination was made there was no evidence of internal abnormality. A large fluctuance within the right perianal region was identified. Incision and drainage was made in this area and there was a large volume of spontaneous malodorous and purulent discharge. This material was sent for culture. The area was extensively irrigated. Counter incision was made in the left perianal area over the area of fluctuance with spontaneous drainage as well. Wound was explored and it appears that the majority of the cavity was on the right and extending into the perineum and across to the left hand side. A [place] drain was placed in the right gluteal tissue. 30 mL of 0.25% bupivacaine were used to anesthetize the tissue. She tolerated the procedure well and was transferred to recovery in stable condition. Complications: none Post-operative Condition: stable Plan for aftercare: Sitz bath 2-3 times daily for the next 2 weeks Follow up with surgical clinic 2 weeks' time.
--- NOTE | 2023-09-14 15:23 | CM.DANOTE ---
Initial DCP Assessment Note Pt is a 32 yo female, resident of [place], presents with clemencia-rectal pain, admitted for I+D of rectal abscesses x2 approximally 4 cm each, IV abx. Bedside assessment attempted, patient in the OR for I+D PCP: Yesi Levy Payer: Ky ZAMBRANO Reviewed chart, pt discussed in multidisciplinary rounds this morning. Patient indp and active, lives with spouse and young children. No barriers identified at this time to patient's safe discharge home w/family to assist; close outpatient f/u recommended. CM team will plan to follow closely in case any DC needs or concerns arise. [facility]U Pro Discharge Planning/Care Management CM Discharge Assessment Start: 09/14/23 15:15 Freq: Status: Active Protocol: Document 09/14/23 15:16 ROSALBA (Rec: 09/14/23 15:23 ROSALBA [id number]) Discharge Planning Assessment Assigned [employer] YU Howard DPOA/Assigned Designee Name Carmen Peralta, spouse Contact Information [phone] Advance Directives? No History Provided By Medical Record Prior Living Arrangements House Household Members spouse,children Type of transporation used prior to Drives own vehicle admit Independent with ADL's Yes Is patient alert and oriented? Yes Barriers to Discharge No Comment Discharge home w/spouse is anticipated Discharge Plan Foster Care Transportation Arrangement Family Referrals Initiated None needed
[2023-09-14] MEDS: diphenhydrAMINE 50 MG/ML VIAL 25 MG IV (16:54)
[2023-09-14] MEDS: DEXTROSE 5%-0.9% NS 1,000 ML 84 ML IV (17:08)
[2023-09-15 00:31] VITALS: BP 106/65; PULSE 100; RESP 18; TEMP 36.4; O2SAT 100
[2023-09-15] MEDS: DEXTROSE 5%-0.9% NS 1,000 ML 84 ML IV (04:53)
[2023-09-15 04:55] LABS: BUN Creatinine Ratio 12.2 (6-22); Blood Urea Nitrogen 5 mg/dL (7-17); Calcium 8.2 mg/dL (8.4-10.2); Carbon Dioxide 24 mmol/L (22-32); Chloride 109 mmol/L (98-107); Estimated Glomerular Filt Rate > 60 mL/min (>60); Glucose 239 mg/dL (70-100); HEMOLYSIS < 15 (0-50); Sodium 136 mmol/L (137-145)
[2023-09-15 05:53] VITALS: BP 113/70; PULSE 85; RESP 19; TEMP 36.1; O2SAT 100
[2023-09-15] MEDS: cefTRIAXone 1,000 MG in SODIUM CHLORIDE 0.9% 100 ML 200 MG IV (10:17)
[2023-09-15] MEDS: VANCOMYCIN 1,500 MG/300 ML PIGGYBACK 200 MG IV (10:59)
[2023-09-15 12:00] VITALS: BP 111/68; PULSE 90; RESP 17; TEMP 36.9; O2SAT 100
[2023-09-15] MEDS: diphenhydrAMINE 50 MG/ML VIAL 25 MG IV (12:28)
[2023-09-15 18:00] VITALS: BP 112/70; PULSE 88; RESP 17; TEMP 36.9; O2SAT 100
--- NOTE | 2023-09-15 18:08 | PM.DS.1 ---
History of Present Illness History of Present Illness Date Patient Seen: 09/14/23 Chief complaint: vaginal and rectal pain Narrative: 32 y/o with PMH of gestational DM and infection following episiotomy 2 years ago, seen initially in the ED on 09/10 with vaginal pain. Workup revealed b/l perianal abscesses and surgery and OBGYN consulted. Discharged home on Levaquin and Flagyl. Today presents with worsening pain, abscesses doubled in size, one on the Rt to 2X5 and one the Lt to 2x6 cm. Not septic but tachycardic and borderline hypotensive. Admitted for IV abx, to be seen by surgery this AM. New information: She has having a lot of pain. Her oral pain medications are helping to a small degree. There has been no spontaneous drainage. I did discuss the case with surgeon, he will perform incision and drainage this afternoon. She denies any fevers, or emesis. Discharge Providers Provider Date of admission: 09/14/23 01:58 Discharge Date: 09/15/23 Primary care physician: Yesi Levy MD Consults: 09/14/23 01:43 Consult to General Surgery Stat Comment: Consulting Provider: Pedro Atwood Reason for consultation: BILATERAL PERIRECTAL ABSCESSES, FAILED OUTPATIENT ABX Has provider been notified: Yes Discharge provider: Luis Galdamez DO Summary Hospital Course Discharge Diagnosis: 1. Perianal Abscesses, present on admission and active, - failed outpatient PO Flagyl / Levaquin - given IV vanc and zosyn - s/p I&D by gen surg with large purulence drained on 09/13 - discharged on po augmentin Hospital Course: Admitted for perirectal abscess after failing outpatient po abx. Underwent successful I&D with evacuation of large amount of purulent drainage. Given IV abx then changed to po augmentin x1 week on discharge. Will f/up with general surgery in 2 weeks to remove drain. Exam Vital Signs (past 8 hours): - 09/15/23 12:00 Temperature 98.5 F Pulse Rate 90 Respiratory Rate 17 Blood Pressure 111/68 Pulse Oximetry 100 Oxygen Delivery Method Room Air Oxygen Flow Rate 0 Narrative Exam Narrative: Alert and oriented, fluent speech, anxious. Normocephalic skull, EOMI, anicteric sclera, symmetric pupils. Oropharynx unremarkable, no droop. Neck supple, midline trachea, no adenopathy. Lungs clear, normal rate and effort. Heart regular, no murmur gallop or rub. Abdomen is soft, non distended and non tender. Extremities are free of edema. Skin is free of rash or lesions. Joints are not swollen or deformed. Judgment appears to be normal. Drain in place in anus, no purulence. Objective Labs 09/14/23 04:06 09/15/23 04:12 Labs: Laboratory Results - last 24 hr 09/15/23 04:12 Sodium 136 L Potassium 4.0 Chloride 109 H Carbon Dioxide 24 BUN 5 L Creatinine 0.41 L Estimated GFR > 60 BUN/Creatinine Ratio 12.2 Glucose 239 H D Calcium 8.2 L PFS Medical History History of gestational diabetes Episiotomy pain Gestational diabetes mellitus (GDM) Kidney stones (~2006) Surgical History History of female sterilization History of delivery H/O tooth extraction (~2012) Family History Mother No problems noted. Father History of heart artery stent History of open heart surgery Diabetes mellitus Pneumonia Grandmother Arthritis Grandfather No problems noted. Grandmother No problems noted. Grandfather Old age Family/Other Diabetes mellitus History of open heart surgery Brother No problems noted. Sister No problems noted. Social History marital status: number of children: 1 household members: spouse and children lives independently: Yes caregiver/support person: Yes housing: apartment pets and animals: No education level: college occupational status: unemployed and previously employed current occupational exposures/hazards: No special kayla needs: No travel history: over 6 months ago seatbelt use: always water heater temp set < 120 deg: Yes working smoke detector in home: Yes fire extinguisher in home: Yes carbon monox detector in home: Yes firearms in home: Yes do you feel safe at home: Yes Smoking Status: Never smoker second hand exposure: No alcohol intake: never substance use type: does not use during the past year weight has: other well-balanced diet: daily or most days daily servings fruits/ve or more times/day caffeine: No Type(s) of exercise: walking frequency: daily Discharge Plan Discharge Plan Patient Disposition: Home Provider Discharge Comment: Please take antibiotics for 1 week and start them as soon as you pick them up. Follow-up with General Surgery in 2 weeks. Discharge orders & Medications Prescriptions: New amoxicillin-pot clavulanate 875-125 mg tablet 1 tab PO BID Qty: 14 0RF Continued oxycodone 5 mg Tablet 10 mg BID PRN (Reason: Pain, Severe) Patient Comments: patient took left over pills from one time ibuprofen 600 mg Tablet 600 mg PO Q6H PRN (Reason: Pain (Scale Score 4-6)) Discontinued metronidazole 500 mg tablet 500 mg PO Q8H 7 Days Qty: 21 0RF levofloxacin 750 mg tablet 750 mg PO DAILY 7 Days Qty: 7 0RF Follow up/Referrals: Yesi Levy MD [Primary Care Provider] - 2 Weeks Pedro Atwood MD [Physician] - 2 Weeks Visit Report/Discharge Packet Stand Alone Forms: Patient Portal/API, Stroke Signs & Symptoms Discharge Data Primary Care Provider: Yesi Levy
== END 2023-09-15 19:45 | disposition home or self-care (01) | DRG 395 ==
LOC: ED 09-14 01:52 → AC 09-14 03:05
PROVIDERS: Surgery; Admitting Provider Internal Medicine; Emergency Provider Emergency Medicine; PCP Internal Medicine; Referring Provider Emergency Medicine; Visit Provider Internal Medicine
PROC: 0D9Q0ZX Drainage of Anus, Open Approach, Diagnostic (ICD-10-PCS; CPT 46040; principal; 2023-09-14 15:00)
DX: K61.0 Anal abscess (principal); R05.9 Cough, unspecified; R50.9 Fever, unspecified
CPT/HCPCS: 36415; 46050; 72193; 74177; 76830; 76856; 80048; 80053; 81001; 83605; 85025; 87040; 87070; 87075; 87077; 87086; 87205; 87210; 87491; 87591; 96365; 96368; 96374; 96375; 99232; 99284; J0696; J1100; J1170; J1200; J1885; J2270; J2405; J2543; J2704; J3010; Q9967

== ENCOUNTER 2023-12-19 15:10 | Day surgery (SDC) | payer OTHER, SELFPAY ==
[2023-12-18 09:28] VITALS: BMI 27.5
[2023-12-18 10:29] VITALS: BMI 31.2
[2023-12-19] MEDS: LACTATED RINGERS 1,000 ML 21 ML IV (15:23)
[2023-12-19 15:27] VITALS: BP 113/75; PULSE 82; RESP 18; TEMP 36.8; O2SAT 100; BMI 31.2
--- NOTE | 2023-12-19 15:45 | PM.PREOP ---
Pre-operative Note Interval Note History & Physical reviewed/Exam performed by Physician: Yes Changes to H&P: No
[2023-12-19] MEDS: CEFAZOLIN 2 GM/100 ML PREMIX 100 ML IV (16:08)
--- NOTE | 2023-12-19 16:12 | SUR.OPER ---
Lithotomy on padded OR bed, head on pillow, arms secured on padded arm boards at <90 degrees abduction. Legs secured in padded yellow fins stirrups.
[2023-12-19] MEDS: BUPIVACAINE 0.25% W/ EPI (PF) 10 ML VIAL 20 ML INJ (16:13)
[2023-12-19] MEDS: BUPIVACAINE LIPOSOME 266 MG/20 ML VIAL INJ (16:13)
[2023-12-19] MEDS: BUPIVACAINE 0.25% (PF) 30 ML, EPINEPHrine 0.15 MG INJ (16:16)
[2023-12-19 16:26] VITALS: BP 122/71; PULSE 94; RESP 22; TEMP 36.1; O2SAT 100
[2023-12-19 16:31] VITALS: BP 113/62; PULSE 95; RESP 18; O2SAT 100
[2023-12-19 16:36] VITALS: BP 119/66; PULSE 85; RESP 16; O2SAT 100
[2023-12-19 16:49] VITALS: BP 114/70; PULSE 74; RESP 12; TEMP 36.8; O2SAT 100
[2023-12-19 17:20] VITALS: BP 111/77; PULSE 77; RESP 16; TEMP 36.2; O2SAT 100
--- NOTE | 2023-12-19 18:21 | PM.OP.1 ---
Operative Date/Time/Diagnoses Date of procedure: 12/19/23 Time of procedure: 18:21 Pre-op diagnosis: Perianal abscess Post-op diagnosis: other (Perianal fistula) Procedure & Clinicians Procedure: Rectal examination under anesthesia Fistulotomy Same procedure as scheduled: Yes Indications: 33-year-old woman history of a traumatic vaginal delivery who has had a persistent perianal abscess. Surgeon: Pedro Atwood Click Yes if Unassisted: Yes Anesthesia Type: General Operative Notes Findings: Superficial perianal abscess Specimen(s): none sent Estimated Blood Loss (mL): 10 Procedure in detail: Patient was brought to the operating room placed supine on the table. Bilateral lower extremity compression devices were applied. General anesthesia was induced he was intubated with a LMA. She was then placed into lithotomy position in she prepped and draped in typical fashion. Time-out was performed. A examination was performed which demonstrates an opening on the perineum at the 10 o'clock position in lithotomy. Lacrimal probe was placed through this and was found to trace superficially to the anal canal. The perianal fistula was then opened using electrocautery over the lacrimal probe. The fistula was debrided using a curette. The fistula tract was left open. A total of 20 mL of Exparel and 40 mL of 0.25% bupivacaine were used for local anesthetic. She tolerated the procedure well. Sponge instrument count was correct and the patient was awakened taken to recovery in stable condition. Complications: none Post-operative Condition: stable Disposition: same day surgery
== END 2023-12-19 17:29 | disposition home or self-care (01) ==
PROVIDERS: PCP Internal Medicine; Referring Provider Surgery; Visit Provider Surgery
PROC: (CPT 46270; principal; 2023-12-19 16:00)
DX: K60.5 Anorectal fistula (principal)
CPT/HCPCS: 46270; C9290; J0171; J0690; J3010